=== PATIENT | female | born 1995 | race African-American/Black ===

== ENCOUNTER 2016-08-25 15:24 | Emergency (ER) | payer OTHER ==
[2016-08-25 15:35] VITALS: TEMP 98.2; BMI 29.7
[2016-08-25] MEDS ORDERED: SODIUM CHLORIDE 1,000 ML IV STA (16:03)
[2016-08-25] MEDS ORDERED: ONDANSETRON 4 MG/2 ML VIAL IVPUSH ONE (16:03)
[2016-08-25] MEDS ORDERED: ONDANSETRON 4 MG/2 ML VIAL ONE (16:24)
--- NOTE | 2016-08-25 16:31 | PDOC ---
History of Present Illness <Aiyana Urban - Last Filed: 08/25/16 20:12> - General History Source: Patient Exam Limitations: No Limitations - History of Present Illness Travel History: No Initial Comments: 08/25/16 16:28 21 yr female presents with 3 days body aches, nausea , no appetite, fever subjective last night took tylenol this am. Pt has no medical history , history of TOPx3, spontaneous miscarriage x1. Pt states her 5yr son is sick with similair symptoms at home. no back pain no vaginal discharge or vaginal bleeding. LMP 06/28/16. Timing/Duration: reports: changing over time Quality: reports: mild Pain Radiation: reports: no radiation Activities at Onset: reports: none <Haley Montemayor - Last Filed: 08/28/16 11:43> - General Chief Complaint: Loss of Appetite Stated Complaint: WEAKNESS, LOSS OF APPETITE, () Time Seen by Provider: 08/25/16 16:02 Past History <Aiyana Urban - Last Filed: 08/25/16 20:12> - Past Medical History Kidney Stones: Yes - Surgical History Abdominal Surgery: Yes (kidney stone removed) - Family Disease History Comment:: 08/25/16 16:30 none relevant - Reproductive History (#): 6 Para: 1 Ectopic : No Therapeutic (s) & number: Yes (1) Spontaneous : 2 - Immunization History Immunization Up to Date: Yes - Psycho/Social/Smoking Cessation Hx Verbal consent obtained for HIV testing: No Anxiety: No Suicidal Ideation: No Smoking Status: No Smoking History: Never smoked Have you smoked in the past 12 months: Yes Number of Cigarettes Smoked Daily: 0 If you are a former smoker, when did you quit?: 3weeks Information on smoking cessation initiated: No Hx Alcohol Use: No Drug/Substance Use Hx: No Substance Use Type: None <Haley Montemayor - Last Filed: 08/28/16 11:43> - Past Medical History Allergies/Adverse Reactions: Allergies Allergy/AdvReac Type Severity Reaction Status Date / Time No Known Allergies Allergy Verified 08/25/16 15:30 Home Medications: Ambulatory Orders NK [No Known Home Medication] 08/25/16 Abd/GI Specific PMHX - Complaint Specific PMHX Colitis: No Diverticulitis: No Gall Bladder Disease: No GERD: No Hepatitis: No Irritable Bowel Synd (IBS): No Pancreatitis: No GI Ulcer Disease: No <Haley Montemayor - Last Filed: 08/28/16 11:43> Review of Systems - Review of Systems Able to Perform ROS?: Yes Is the patient limited Turkish proficient: No Constitutional: No: Symptoms Reported HEENTM: No: Symptoms Reported <Haley Montemayor - Last Filed: 08/28/16 11:43> *Physical Exam - Vital Signs Last Vital Signs Temp Pulse Resp BP Pulse Ox 98.2 F 89 16 148/72 100 08/25/16 15:30 08/25/16 15:30 08/25/16 15:30 08/25/16 15:30 08/25/16 15:30 <Aiyana Urban - Last Filed: 08/25/16 20:12> - Vital Signs Last Vital Signs Temp Pulse Resp BP Pulse Ox 98.2 F 89 16 148/72 100 08/25/16 15:30 08/25/16 15:30 08/25/16 15:30 08/25/16 15:30 08/25/16 15:30 - Physical Exam General Appearance: Yes: Nourished, Appropriately Dressed HEENT: positive: EOMI, ANGELA, TMs Normal, Pharynx Normal, Nasal Congestion Neck: positive: Supple. negative: Tender Respiratory/Chest: positive: Lungs Clear, Normal Breath Sounds. negative: Chest Tender Cardiovascular: positive: Regular Rhythm, Regular Rate Gastrointestinal/Abdominal: positive: Normal Bowel Sounds, Soft. negative: Tender Musculoskeletal: positive: Normal Inspection. negative: CVA Tenderness, CVA Tenderness (R) Extremity: positive: Normal Capillary Refill, Normal Inspection, Normal Range of Motion Integumentary: positive: Normal Color, Dry, Warm Neurologic: positive: Fully Oriented, Alert, Normal Mood/Affect, Normal Response , Motor Strength 5/5 <Haley Montemayor - Last Filed: 08/28/16 11:43> ED Treatment Course - LABORATORY CBC & Chemistry Diagram: 08/25/16 16:45 08/25/16 16:45 - ADDITIONAL ORDERS Additional order review: Laboratory Results 08/25/16 08/25/16 16:45 16:45 Sodium 135 L Potassium 4.1 Chloride 103 Carbon Dioxide 26 Anion Gap 6 L BUN 6 L D Creatinine 0.6 Creat Clearance w eGFR > 60 Random Glucose 73 L Calcium 9.4 Total Bilirubin 0.8 D AST 14 L ALT 17 Alkaline Phosphatase 75 Total Protein 8.2 Albumin 4.2 Beta HCG, Quant 68729.8 Urine Color Yellow Urine Appearance Clear Urine pH 6.0 Ur Specific [place] 1.025 Urine Protein Trace H Urine Glucose (UA) Negative Urine Ketones 3+ H Urine Blood Negative Urine Nitrite Negative Urine Bilirubin Negative Urine Urobilinogen 0.2 e.u/dl Ur Leukocyte Esterase Negative 08/25/16 16:29 Influenza Types A,B Antigen (GLORIA) - Final Nasopharyngeal Swab - Final 08/25/16 16:45 RBC 5.03 MCV 89.5 MCHC 33.4 RDW 13.0 MPV 8.9 D - Medications Given in the ED: ED Medications Discontinued Medications Generic Name Dose Route Start Last Admin Trade Name Freq PRN Reason Stop Dose Admin Sodium Chloride 1,000 mls @ 1,000 mls/hr 08/25/16 16:03 08/25/16 16:05 Normal Saline - IV 08/25/16 17:02 1,000 mls/hr ASDIR STA Administration Ondansetron HCl 4 mg 08/25/16 16:03 08/25/16 16:05 Zofran Injection IVPUSH 08/25/16 16:04 4 mg ONCE ONE Administration <Aiyana Urban - Last Filed: 08/25/16 20:12> - LABORATORY CBC & Chemistry Diagram: 08/25/16 16:45 08/25/16 16:45 - Medications Given in the ED: ED Medications Discontinued Medications Generic Name Dose Route Start Last Admin Trade Name Freq PRN Reason Stop Dose Admin Ondansetron HCl 4 mg 08/25/16 16:03 08/25/16 16:05 Zofran Injection IVPUSH 08/25/16 16:04 4 mg ONCE ONE Administration <Haley Montemayor - Last Filed: 08/28/16 11:43> Progress Note - Progress Note Progress Note: SPOKE WITH PATIENT IN LENGTH REGARDING HER RESULTS. PATIENT STATES SHE WILL FOLLOW UP WITH 2 AMELIA PICHARDO INSPECTOR FINAL ASSEMBLY ELECTRICAL TOMORROW REGARDING CARE. PATIENT STATES SHE FEELS MUCH BETTER. DENIES ANY OTHER COMPLAINTS. <Aiyana Urban - Last Filed: 08/25/16 20:12> Medical Decision Making - Medical Decision Making 08/25/16 16:33 cc: nasal congestion, body aches, fever will check for flu labs, ua IVhydration, greta 08/25/16 18:34 negative for influenza awaiting US 08/25/16 19:04 signed out to MEMBER SERVICES COORDINATOR Elba awaiting disposition <Haley Montemayor - Last Filed: 08/28/16 11:43> *DC/Admit/Observation/Transfer - Discharge Dispostion Admit: No <Aiyana Urban - Last Filed: 08/25/16 20:12> <Haley Montemayor - Last Filed: 08/28/16 11:43> Diagnosis at time of Disposition: Dehydration Qualifiers: Weeks of gestation: unspecified Qualified Code(s): Z33.1 - state, incidental - Discharge Dispostion Disposition: HOME - Referrals Referrals: Tolu Muñoz MD, MD [Primary Care Provider] - Nithya Roberson MD [Staff Physician] - - Patient Instructions Printed Discharge Instructions: DI for Dehydration -- Adult, DI for - - Discomforts and Remedies Additional Instructions: drink pleanty of fluids clear liquids, jello, ice pops antyhing you can tolerate dry crackers dry cereal get pleanty of rest follow with your mainframe programmer follow with your doctor for follow up if symptoms worsen or persist. call 2 Amelia Pichardo at [phone] for appointment with INSPECTOR FINAL ASSEMBLY [employer]LECT[employer]. Return if any concerns for further evaluation. Please eat. Print Language: CITIZEN OF [place]
[2016-08-25 16:56] LABS: URINE APPEARANCE CLEAR; URINE BILIRUBIN NEGATIVE (NEGATIVE); URINE BLOOD NEGATIVE (NEGATIVE); URINE COLOR YELLOW; URINE GLUCOSE (UA) NEGATIVE (NEGATIVE); URINE KETONE 3+ (NEGATIVE); URINE LEUK ESTERASE NEGATIVE (NEGATIVE); URINE NITRITE NEGATIVE (NEGATIVE); URINE PROTEIN TRACE (NEGATIVE); URINE UROBILINOGEN 0.2 E.U/dl E.U./dl (0.2-1.0)
[2016-08-25 16:58] LABS: MCH 29.9 pg (25.7-33.7); MCHC 33.4 g/dl (32.0-36.0); MEAN CELL VOLUME 89.5 fl (80-96); MEAN PLT VOLUME 8.9 fl (7.5-11.1); PLATELET COUNT 275 K/MM3 (134-434); WHITE BLOOD COUNT 8.2 K/mm3 (4.0-10.0)
--- NOTE | 2016-08-25 17:01 | PDOC ---
*Physical Exam - Vital Signs Last Vital Signs Temp Pulse Resp BP Pulse Ox 98.2 F 89 16 148/72 100 08/25/16 15:30 08/25/16 15:30 08/25/16 15:30 08/25/16 15:30 08/25/16 15:30 ED Treatment Course - LABORATORY CBC & Chemistry Diagram: 08/25/16 16:45 08/25/16 16:45 - Medications Given in the ED: ED Medications Discontinued Medications Generic Name Dose Route Start Last Admin Trade Name Yolis PRN Reason Stop Dose Admin Ondansetron HCl 4 mg 08/25/16 16:03 08/25/16 16:05 Zofran Injection IVPUSH 08/25/16 16:04 4 mg ONCE ONE Administration Medical Decision Making - Medical Decision Making 08/25/16 16:56 Case reviewed with EQUIPMENT OPERATOR WAGE HAND. Plan as per EQUIPMENT OPERATOR WAGE HAND. *DC/Admit/Observation/Transfer Diagnosis at time of Disposition: , Dehydration - Discharge Dispostion Disposition: HOME - Referrals Referrals: Nithya Roberson MD [Staff Physician] - Tolu Muñoz MD, MD [Primary Care Provider] - - Patient Instructions Printed Discharge Instructions: DI for Dehydration -- Adult, DI for - - Discomforts and Remedies Additional Instructions: drink pleanty of fluids clear liquids, jello, ice pops antyhing you can tolerate dry crackers dry cereal get pleanty of rest follow with your aluminizer follow with your doctor for follow up if symptoms worsen or persist. call 2 Kamille Pichardo at [phone] for appointment with VIDEOTAPE SALES REPRESENTATIVE. Return if any concerns for further evaluation. Please eat. Print Language: NEPALESE
[2016-08-25 17:16] LABS: ALBUMIN 4.2 g/dl (3.4-5.0); ANION GAP 6 (8-16); BILIRUBIN,TOTAL 0.8 mg/dL (0.2-1.0); CALCIUM 9.4 mg/dL (8.5-10.1); CO2 26 mmol/L (21-32); CREATININE 0.6 mg/dL (0.55-1.02); GLUCOSE,RANDOM 73 mg/dL (74-106); SGOT/AST 14 U/L (15-37); SGPT/ALT 17 U/L (12-78); TOT PROT 8.2 g/dl (6.4-8.2)
[2016-08-25 17:31] LABS: ALK PHOS 75 U/L (45-117)
[2016-08-25 20:29] VITALS: BP 130/70; PULSE 72
== END 2016-08-25 20:29 | disposition home or self-care (01) ==
LOC: JER 15:24
PROC: 3E033GC Introduction of Other Therapeutic Substance into Peripheral Vein, Percutaneous Approach (ICD-10-PCS; principal; 2016-08-25)
PROC: 3E0337Z Introduction of Electrolytic and Water Balance Substance into Peripheral Vein, Percutaneous Approach (ICD-10-PCS; 2016-08-25)
DX: Z33.1 Pregnant state, incidental (principal); E86.0 Dehydration; Z87.891 Personal history of nicotine dependence; Z87.442 Personal history of urinary calculi
CPT/HCPCS: 36415; 76817-TC; 80053; 81003; 84702; 85027; 87491; 87591; 87804; 99283-25

== ENCOUNTER 2016-12-31 10:03 | Emergency (ER) | payer OTHER ==
[2016-12-31 10:23] VITALS: BP 150/87; PULSE 87; TEMP 98.4; BMI 30.4
--- NOTE | 2016-12-31 10:38 | PDOC ---
History of Present Illness - General History Source: Patient Exam Limitations: No Limitations - History of Present Illness Initial Comments: 12/31/16 13:10 The patient is a 21 year old female, with a significant past medical history of kidney stones, and migraines, sent by PCP to the Emergency Department with RUQ pain, and cough. Pt endorses some nasal congestion/itchy eyes, chest tighness and wheezing for the past several weeks, she went to her allergy doctor who started her on prednisone, but stopped it on her own last . Pt endorsed that she started havign RUQ pain associaed with some nausea. Pt states her RUQ pain is chronic for a year but seemed to worsen today. Pt also endrosed some mild dizziness. Pt states she had a elective in august, lmp was last month. The patient denies vomiting, or diarrhea. Patient denies hemoptysis. Patient denies numbness or tingling to the extremities. Patient denies fever, or chills. Patient denies double vision, blurry vision, and visual changes. Patient denies vaginal bleeding, or discharge. Social Hx: denies cigarette smoking Surgical Hx: kidney stone removal <Mayte Ellison - Last Filed: 12/31/16 15:25> - General History Source: Patient Exam Limitations: No Limitations - History of Present Illness Travel History: No Initial Comments: 12/31/16 12:12 <Karlos Shelton - Last Filed: 12/31/16 16:49> - General Chief Complaint: Pain, Acute Stated Complaint: PCP SENT FOR EVALUATION Time Seen by Provider: 12/31/16 10:33 Past History <Mayte Ellison - Last Filed: 12/31/16 15:25> - Past Medical History Kidney Stones: Yes - Surgical History Abdominal Surgery: Yes (kidney stone removed) - Reproductive History (#): 6 Para: 1 Ectopic : No Therapeutic (s) & number: Yes (1) Spontaneous : 2 - Immunization History Immunization Up to Date: Yes - Psycho/Social/Smoking Cessation Hx Anxiety: No Suicidal Ideation: No Smoking Status: No Smoking History: Never smoked Have you smoked in the past 12 months: Yes Number of Cigarettes Smoked Daily: 0 If you are a former smoker, when did you quit?: 3weeks Information on smoking cessation initiated: No Hx Alcohol Use: No Drug/Substance Use Hx: No Substance Use Type: None <Karlos Shelton - Last Filed: 12/31/16 16:49> - Past Medical History Allergies/Adverse Reactions: Allergies Allergy/AdvReac Type Severity Reaction Status Date / Time No Known Allergies Allergy Verified 12/31/16 10:23 Home Medications: Ambulatory Orders Albuterol Sulfate Inhaler - [Ventolin HFA Inhaler -] 1 - 2 inh PO Q4H PRN #1 inhaler 12/31/16 Abd/GI Specific PMHX - Complaint Specific PMHX Colitis: No Diverticulitis: No Gall Bladder Disease: No GERD: No Hepatitis: No Irritable Bowel Synd (IBS): No Pancreatitis: No GI Ulcer Disease: No <Karlos Shelton - Last Filed: 12/31/16 16:49> Review of Systems - Review of Systems Able to Perform ROS?: Yes Comments:: 12/31/16 13:10 CONSTITUTIONAL: Reported: + dizziness No reported: Fever, Chills, Diaphoresis, Generalized Weakness, Malaise, Loss of Appetite HEENT: Reported: + nasal congestion No reported: Rhinorrhea, Throat Pain, Throat Swelling, Difficulty Swallowing, Mouth Swelling, Ear Pain, Eye Pain, Visual Changes CARDIOVASCULAR: Reported: + right sided chest pain and tightness No reported: Syncope, Palpitations, Irregular Heart Rate, Lightheadedness, Peripheral Edema RESPIRATORY: Reported: + cough No reported: Shortness of Breath, SOB with Exertion, Orthopnea, Wheezing, Stridor, Hemoptysis GASTROINTESTINAL: Reported: + RUQ pain radiating to right back and right leg, + nausea No reported: Abdominal Distension, Vomiting, Diarrhea, Constipation, Melena, Hematochezia GENITOURINARY: No reported: Dysuria, Frequency, Urgency, Hesitancy, Flank Pain, Genital Pain MUSCULOSKELETAL: No reported: Myalgia, Arthralgia, Joint Swelling, Back pain, Neck Pain SKIN: No reported: Rash, Itching, Pallor HEMATOLOGIC/IMMUNOLOGIC: No reported: Easy Bleeding, Easy Bruising, Lymphadenopathy, Frequent infections ENDOCRINE: No reported: Unexplained Weight Gain, Unexplained Weight Loss, Heat Intolerance , Cold Intolerance NEUROLOGIC: Reported: + headache worse at right side No reported: Focal Weakness, Paresthesias, Vertigo, Unsteady Gait, Seizure, Mental Status Changes, Incontinence PSYCHIATRIC: No reported: Anxiety, Depression <Mayte Ellison - Last Filed: 12/31/16 15:25> *Physical Exam - Vital Signs Last Vital Signs Temp Pulse Resp BP Pulse Ox 98.4 F 87 20 150/87 100 12/31/16 10:19 12/31/16 10:19 12/31/16 10:19 12/31/16 10:19 12/31/16 10:19 - Physical Exam Comments: 12/31/16 13:10 GENERAL: The patient is awake, alert, and fully oriented, Nontoxic - in no acute distress. HEAD: Normocephalic, atraumatic. EYES: extraocular movements intact, sclera anicteric, conjunctiva clear. ENT: Normal voice, Moist mucous membranes. NECK: Normal range of motion, supple LUNGS: mild expiratory wheezing, no acute respiratory distress, speaking complete sentences. HEART: Regular rate and rhythm, normal S1 and S2 without murmur, rub or gallop. ABDOMEN: mild RUQ tenderness, no rebound/guarding, EXTREMITIES: Normal range of motion, no edema. No clubbing or cyanosis. No cords, erythema, or tenderness. NEUROLOGICAL: No facial assymetry, Normal speech, PSYCH: tearful affect SKIN: Warm, Dry, normal turgor, <Mayte Ellison - Last Filed: 12/31/16 15:25> - Vital Signs Last Vital Signs Temp Pulse Resp BP Pulse Ox 98.4 F 87 20 150/87 100 12/31/16 10:19 12/31/16 10:19 12/31/16 10:19 12/31/16 10:19 12/31/16 10:19 <Karlos Shelton - Last Filed: 12/31/16 16:49> Heart Score/ECG Review - ECG Impressions Comment:: 12/31/16 12:13 Twelve-lead EKG was performed and reviewed by me. There is normal sinus rhythm with a normal rate. rate of 72 The axis is normal. The intervals are normal. There is normal R wave progression Impression: Normal twelve-lead EKG <Karlos Shelton - Last Filed: 12/31/16 16:49> ED Treatment Course - LABORATORY CBC & Chemistry Diagram: 12/31/16 11:42 12/31/16 11:42 - ADDITIONAL ORDERS Additional order review: Laboratory Results 12/31/16 12/31/16 11:42 11:42 Sodium 139 Potassium 5.4 H D Chloride 105 Carbon Dioxide 28 Anion Gap 6 L BUN 8 D Creatinine 0.6 Creat Clearance w eGFR > 60 Random Glucose 87 Calcium 9.3 Total Bilirubin 0.7 Direct Bilirubin 0.1 AST 30 D ALT 22 D Alkaline Phosphatase 79 Total Protein 8.3 H Albumin 4.0 Beta HCG, Quant < 1.0 12/31/16 11:42 RBC 4.83 MCV 90.4 MCHC 34.4 RDW 12.8 MPV 8.8 Neutrophils % 42.3 L Lymphocytes % 39.0 D Monocytes % 11.2 H Eosinophils % 6.7 H D Basophils % 0.8 - RADIOLOGY Radiology Studies Ordered: 12/31/16 15:25 Chest XRay As reviewed by Dr. John Ocampo IMPRESSION: No evidence of active pulmonary disease. Radiograph Interpretation: 12/31/16 13:37 Ultrasound Abdomen As reviewed by Dr. Lilia Babin IMPRESSION: Unremarkable examination. No gallstones or renal stone identified. - Medications Given in the ED: ED Medications Discontinued Medications Generic Name Dose Route Start Last Admin Trade Name Freq PRN Reason Stop Dose Admin Sodium Polystyrene Sulfonate 15 gm 12/31/16 12:53 12/31/16 12:57 Kayexalate - PO 12/31/16 12:54 15 gm ONCE ONE Administration <Mayte Ellison - Last Filed: 12/31/16 15:25> - LABORATORY CBC & Chemistry Diagram: 12/31/16 11:42 12/31/16 11:42 <Karlos Shelton - Last Filed: 12/31/16 16:49> Medical Decision Making - Medical Decision Making 12/31/16 12:13 21y F hx of seasonal allergies presenting with multiple complaints - +seasonal allergies and was n steroids through allergiest, has also been having coughing/ wheezing for several days w/o associated fevers. Pt also having complaint of RUQ pain that is chronic x 1 year, but worse today with an epsiode of vomiting. pt has normal vitals on exam, +mild expiratory wheezing on exam, appears anxious and tearfl affect will r/o pna with cxr, suspet sesaonal allergies will give nebs will obtain RUQ US to r/o hydro and gall stones as cause of her ruqpain will r/o - pt was in august, had , and has been well since then A portion of this note was documented by scribe services under my direction. I have reviewed the details of the note, within reason, and agree with the documentation with the following case summary and management plan written by me 12/31/16 13:41 labs reivewed noted for mild hyperkalemia will give kayexalate no ekg changes US negative for acute process 12/31/16 14:38 cxr unremarakble pt feeling improved will dc the pt to fu with dr. muñoz/pmd return precautions were discussed I discussed the physical exam findings, ancillary test results and final diagnoses with the patient. I answered all of the patient's questions. The patient was satisfied with the care received and felt comfortable with the discharge plan and treatment plan. The patient will call their primary care physician within 24 hours to arrange follow-up and will return to the Emergency Department with any new, persistent or worsening symptoms. <Karlos Shelton - Last Filed: 12/31/16 16:49> *DC/Admit/Observation/Transfer - Attestations Scribe Attestion: 12/31/16 13:10 Documentation prepared by Mayte Ellison, acting as medical technologist chemistry for Karlos Shelton MD. <Mayte Ellison - Last Filed: 12/31/16 15:25> - Discharge Dispostion Admit: No <Karlos Shelton - Last Filed: 12/31/16 16:49> Diagnosis at time of Disposition: Environmental allergies Abdominal pain Qualifiers: Abdominal location: generalized Qualified Code(s): R10.84 - Generalized abdominal pain - Discharge Dispostion Disposition: HOME Condition at time of disposition: Improved - Prescriptions Prescriptions: Albuterol Sulfate Inhaler - [Ventolin HFA Inhaler -] 1 - 2 inh PO Q4H PRN #1 inhaler PRN Reason: Shortness Of Breath - Referrals Referrals: Tolu Muñoz MD, MD [Primary Care Provider] - Tony Meadows MD [Staff Physician] - - Patient Instructions Printed Discharge Instructions: DI for Abdominal Pain-Adult Additional Instructions: Return to the emergency department immediately with ANY new, persistent or worsening symptoms including worsening abdominal pain, fevers, inability to tolerate oral intake, chest pain, shortness of breath or any other concerns. Stay well hydrated. You MUST call and follow up with your doctor tomorrow. Your emergency department visit is not complete without a followup with your doctor for reevaluation. Please make sure your doctor reviews the results of your emergency evaluation. Print Language: FRISIAN - Post Discharge Activity Work/School Note: Back to Work
[2016-12-31 11:48] LABS: BASOPHIL 0.8 % (0-2.0); EOSINOPHIL 6.7 % (0-4.5); MCH 31.1 pg (25.7-33.7); MCHC 34.4 g/dl (32.0-36.0); MEAN CELL VOLUME 90.4 fl (80-96); MEAN PLT VOLUME 8.8 fl (7.5-11.1); NEUTROPHILS 42.3 % (42.8-82.8); PLATELET COUNT 222 K/MM3 (134-434); RDW 12.8 % (11.6-15.6); WHITE BLOOD COUNT 6.9 K/mm3 (4.0-10.0)
[2016-12-31 12:12] LABS: ANION GAP 6 (8-16); BILIRUBIN,TOTAL 0.7 mg/dL (0.2-1.0); CALCIUM 9.3 mg/dL (8.5-10.1); CO2 28 mmol/L (21-32); COCKROFT - GAULT 179.5965; CREATININE 0.6 mg/dL (0.55-1.02); GLUCOSE,RANDOM 87 mg/dL (74-106); SGPT/ALT 22 U/L (12-78)
[2016-12-31] MEDS ORDERED: ALBUTEROL SO4 2.5/IPRATROPIUM 0.5 INH SOL 3 ML VIAL.NEB. NEB ONE ×2 (12:12→13:54)
[2016-12-31 12:13] LABS: ALK PHOS 79 U/L (45-117); TOT PROT 8.3 g/dl (6.4-8.2)
[2016-12-31 12:23] LABS: BILIRUBIN,DIRECT 0.1 mg/dL (0.0-0.2); SGOT/AST 30 U/L (15-37)
[2016-12-31] MEDS ORDERED: SODIUM POLYSTYRENE SULFONATE 15 GM/60 ML BOTTLE PO ONE (12:53)
[2016-12-31] MEDS ORDERED: SODIUM POLYSTYRENE SULFONATE 15 GM/60 ML BOTTLE ONE (12:56)
[2016-12-31] MEDS ORDERED: KETOROLAC TROMETHAMINE 30 MG/1 ML VIAL IVPUSH ONE (13:13)
[2016-12-31] MEDS ORDERED: KETOROLAC TROMETHAMINE 30 MG/1 ML VIAL ONE (13:54)
--- NOTE | 2016-12-31 16:13 | EKG ---
Test Reason : Blood Pressure : / mmHG Vent. Rate : 072 BPM Atrial Rate : 072 BPM P-R Int : 144 ms QRS Dur : 080 ms QT Int : 372 ms P-R-T Axes : 027 070 035 degrees QTc Int : 407 ms NORMAL SINUS RHYTHM WITH SINUS ARRHYTHMIA NORMAL ECG NO PREVIOUS ECGS AVAILABLE Confirmed by MEDARDO GARCIA, MARSHA ([id number]) on 12/31/2016 4:12:43 PM Referred By: Confirmed By:MARSHA BATRES MD
== END 2016-12-31 16:50 | disposition home or self-care (01) ==
LOC: JER 10:03
PROC: 3E0F7GC Introduction of Other Therapeutic Substance into Respiratory Tract, Via Natural or Artificial Opening (ICD-10-PCS; principal; 2016-12-31)
PROC: 3E0233Z Introduction of Anti-inflammatory into Muscle, Percutaneous Approach (ICD-10-PCS; 2016-12-31)
DX: J30.89 Other allergic rhinitis (principal); R10.84 Generalized abdominal pain
CPT/HCPCS: 36415; 71020-TC; 76705-TC; 80053; 82248; 84702; 85025; 93005; 93010; 99283-25

== ENCOUNTER 2017-11-19 14:40 | Inpatient (IN) | payer OTHER ==
[2017-11-19 16:02] LABS: URINE APPEARANCE CLOUDY; URINE BILIRUBIN NEGATIVE (<2.0 mg/dL); URINE COLOR YELLOW; URINE GLUCOSE (UA) NEGATIVE (NEGATIVE); URINE KETONE NEGATIVE (NEGATIVE); URINE LEUK ESTERASE NEGATIVE (NEGATIVE); URINE NITRITE NEGATIVE (NEGATIVE); URINE PROTEIN NEGATIVE (NEGATIVE); URINE UROBILINOGEN NEGATIVE mg/dL (0.2-1.0)
[2017-11-19] MEDS ORDERED: DEXTROSE 5%-LACTATED RINGERS 1,000 ML IV ONE (18:00)
[2017-11-19] MEDS ORDERED: NIFEdipine 10 MG CAPSULE (FP) ONE ×4 (18:42→23:51)
[2017-11-19] MEDS ORDERED: NIFEdipine 10 MG CAPSULE (FP) PO ONE ×3 (19:00→22:30)
[2017-11-19] MEDS ORDERED: DEXTROSE 5%-LACTATED RINGERS 1,000 ML IV SCH (20:00)
[2017-11-19] MEDS ORDERED: BETAMET ACET/BETAMET NA PH 30 MG/5 ML VIAL IM SCH (20:15)
[2017-11-19] MEDS ORDERED: BETAMET ACET/BETAMET NA PH 30 MG/5 ML VIAL ONE (20:19)
[2017-11-19] MEDS ORDERED: ELECTROLYTE-148 SOLN 1,000 ML IV SCH (20:30)
[2017-11-19] MEDS ORDERED: CITRIC ACID/SODIUM CITRATE 30 ML UNIT-DOSE CUP PO ONE (20:30)
--- NOTE | 2017-11-19 23:39 | HP ---
Past Medical History - Primary Care Physician PCP:: Hernan Harmon - Admission Chief Complaint: 22yo P1051 @ 36.1 wks c/o contractions, no VB, no LOF, +Fm History of Present Illness: She received IV Hydration During evaluation and contractions spaced out and than recurred; She also complains of dysuria History Source: Patient Limitations to Obtaining History: No Limitations - Past Medical History ...: 8 ...Para: 1 (c/section for NRFHR) ...Term: 1 ...Spon : 6 ...LMP: 03/09/17 ... Weeks Gestation by Dates: 36 ...EDC by Dates: 12/17/17 ...EDC by Sono: 12/17/17 Psych: Yes: Anxiety - Past Surgical History Past Surgical History: Yes: Tonsillectomy Hx Myomectomy: No Hx Transabdominal Cerclage: No Additional Surgical History: Left toe surgery - Smoking History Smoking history: Never smoked Have you smoked in the past 12 months: Yes Aproximately how many cigarettes per day: 0 If you are a former smoker, when did you quit?: 3weeks - Alcohol/Substance Use Hx Alcohol Use: No History of Substance Use: reports: None Home Medications - Allergies Allergies/Adverse Reactions: Allergies Allergy/AdvReac Type Severity Reaction Status Date / Time No Known Allergies Allergy Verified 11/03/17 14:36 - Home Medications Home Medications: Ambulatory Orders Vitamins (Sjr) - 1 tab PO DAILY 08/30/17 Review of Systems - Review of Systems Constitutional: reports: No Symptoms Eyes: reports: No Symptoms HENT: reports: No Symptoms Neck: reports: No Symptoms Cardiovascular: reports: No Symptoms Respiratory: reports: No Symptoms Gastrointestinal: reports: No Symptoms Genitourinary: reports: Dysuria Breasts: reports: No Symptoms Reported Musculoskeletal: reports: No Symptoms Integumentary: reports: No Symptoms Neurological: reports: No Symptoms Endocrine: reports: No Symptoms Hematology/Lymphatic: reports: No Symptoms Psychiatric: reports: Anxiety Physical Exam - Maternity Vital Signs: Vital Signs Temperature 98.2 F 11/19/17 21:58 Pulse Rate 110 H 11/19/17 23:00 Respiratory Rate 20 11/19/17 23:00 Blood Pressure 126/62 11/19/17 23:00 O2 Sat by Pulse Oximetry (%) Constitutional: Yes: Well Nourished, No Distress, Calm Eyes: Yes: WNL HENT: Yes: WNL, Atraumatic, Normocephalic Neck: Yes: WNL, Supple, Trachea Midline Cardiovascular: Yes: WNL, Regular Rate and Rhythm Lungs: Clear to auscultation Breast(s): Yes: WNL - Abdominal Exam/OB Fundal Height: 36 Number of Fetuses: Single Presentation: Vertex Contractions: Yes Regularity: Regular (3-5min) Intensity: Mild/Mod Monitor Mode: External Heart Rate (range): 140's Heart Rate Location: [facility] Category: I Accelerations: Uniform Decelerations: None - Vaginal Exam/OB Vaginal Bleediing: No Speculum Exam: No Dilatation (cm): closed Effacement (%): long Amniotic Membrane Status: Intact Presentation: Vertex/Position Station: -4 - Physical Exam Musculoskeletal: Yes: WNL Integumentary: Yes: WNL Deep Tendon Reflex Grade: Normal +2 ...Motor Strength: WNL Psychiatric: Yes: Other (anxious) Assessment/Plan 22yo P1061 @ 36.1 wks with contractions Admit to L&D Case discussed with Send Admit labs and UA culture Procardia trail and Stadol/Phenergan was effective in stopping frequency of the contractions Continue Procardia 20mg Q 6hr Bethamethasone given @ 8pm 11/19/17, second dose due 8pm 11/20/17 Start Kefzol for presumed UTI NPO post breakfast will reevaluate at 9pm if contractions persist will proceed with c/section
[2017-11-20] MEDS: NIFEdipine 10 MG CAPSULE (FP) PO SCH ×4 (00:19→17:51)
[2017-11-20 00:29] LABS: EOS % 0.1 % (0-4.5); HEMOGLOBIN 14.3 GM/dL (10.7-15.3)
[2017-11-20 00:31] LABS: BASO % 0.3 % (0-2.0); HEMATOCRIT 41.2 % (32.4-45.2); LYMPH % 9.7 % (8-40); MCH 32.3 pg (25.7-33.7); MCHC 34.7 g/dl (32.0-36.0); MEAN CELL VOLUME 93.1 fl (80-96); MEAN PLT VOLUME 9.5 fl (7.5-11.1); MONO % 3.1 % (3.8-10.2); NEUT % 86.8 % (42.8-82.8); PLATELET COUNT 206 K/MM3 (134-434); RBC 4.43 M/mm3 (3.60-5.2); RDW 13.1 % (11.6-15.6); WHITE BLOOD COUNT 10.4 K/mm3 (4.0-10.0)
[2017-11-20 00:50] LABS: INR 0.96 (0.82-1.09); PROTHROMBIN TIME (PATIENT) 10.8 SEC (9.98-11.88)
[2017-11-20 00:52] LABS: ACTIVATED PTT 28.2 SECONDS (26.9-34.4)
[2017-11-20 01:15] LABS: ANION GAP 14 (8-16); BLOOD UREA NITROGEN 3 mg/dL (7-18); CALCIUM 9.6 mg/dL (8.5-10.1); CHLORIDE 103 mmol/L (98-107); CO2 21 mmol/L (21-32); CREATININE 0.4 mg/dL (0.55-1.02); GLUCOSE,RANDOM 101 mg/dL (74-106); POTASSIUM 3.7 mmol/L (3.5-5.1); SODIUM 138 mmol/L (136-145)
[2017-11-20] MEDS ORDERED: BUTORPHANOL TARTRATE 1 MG/ML VIAL ONE ×2 (01:30)
[2017-11-20] MEDS ORDERED: BUTORPHANOL TARTRATE 1 MG/ML VIAL IVPB ONE (01:30)
[2017-11-20] MEDS ORDERED: PROMETHAZINE HCL 25 MG/1 ML VIAL ONE (01:30)
[2017-11-20] MEDS ORDERED: PROMETHAZINE HCL 25 MG/1 ML VIAL IVPB ONE (01:30)
[2017-11-20 01:56] VITALS: BMI 30.2
[2017-11-20] MEDS: CEFAZOLIN 500 MG in DEXTROSE 5%-WATER - 50 ML IVPB SCH ×2 (09:35→22:00)
[2017-11-20] MEDS ORDERED: NIFEdipine 10 MG CAPSULE (FP) ONE ×2 (11:54→17:15)
[2017-11-20] MEDS ORDERED: BETAMET ACET/BETAMET NA PH 30 MG/5 ML VIAL IM ONE (20:30)
[2017-11-21] MEDS ORDERED: NIFEdipine 10 MG CAPSULE (FP) ONE (00:10)
[2017-11-21] MEDS: NIFEdipine 10 MG CAPSULE (FP) PO SCH ×4 (00:10→17:05)
[2017-11-21] MEDS ORDERED: NALOXONE HCL 0.4 MG/ML VIAL IVPUSH PRN (02:52)
[2017-11-21] MEDS ORDERED: ONDANSETRON 4 MG/2 ML VIAL IVPUSH PRN ×2 (02:54→07:55)
[2017-11-21] MEDS ORDERED: ELECTROLYTE-148 SOLN 1,000 ML IV ONE (06:30)
[2017-11-21] MEDS ORDERED: OXYTOCIN 20 UNITS in 0.9% NS 20 UNIT/1,000 ML INFUS.BAG IV ONE ×2 (07:52→10:50)
--- NOTE | 2017-11-21 07:54 | PN ---
Progress Note (short form) - Note Progress Note: 22yo P1061 @ 36.3wks admitted with contractions s/p Betamethasone and Procardia tocolisys She is also on Kefzol for presumed UTI She currently reports persistent pelvic discomfort and contractions and desires repeat c/section risks of uterine rupture, injury to bowel, bladder and vessels discussed with patient All questions answered will proceed with repeat c/section Consent signed
[2017-11-21] MEDS ORDERED: oxyCODONE HCL 5 MG TABLET PO PRN (07:55)
[2017-11-21] MEDS ORDERED: BENZOCAINE 28 GM HEMORRHOIDAL OINTMENT PR PRN (07:55)
[2017-11-21] MEDS ORDERED: IBUPROFEN 800 MG/8 ML IJ IVPB PRN (07:55)
[2017-11-21] MEDS ORDERED: METHYLERGONOVINE MALEATE 0.2 MG/1 ML AMP IM PRN (07:55)
[2017-11-21] MEDS ORDERED: BENZOCAINE 20% 57 GM BOTTLE TP PRN (07:55)
[2017-11-21] MEDS ORDERED: morphine SULFATE/Preservative Free 0.5 MG/ML (1cc Syringe) EP ONE (07:55)
[2017-11-21] MEDS ORDERED: diphenhydrAMINE HCL 25 MG CAPSULE (FP) PO PRN (07:55)
[2017-11-21] MEDS ORDERED: WITCH HAZEL 50% (TUCKS) 40 PAD/JAR PAD TP PRN (07:55)
--- NOTE | 2017-11-21 07:55 | OP ---
Operative Note - Note: Operative Date: 11/21/17 Pre-Operative Diagnosis: 22yo P1 @ 36.3 weeks with prior c/section and contractions,. s/p Procardia tocolysis and Betamethasone for FLM Operation: Repeat c/section Findings: 1. Extensive Uterine window 2. Viable male 5.9lb, APGARs 9/9 3. Fundal 4cm fibroid 4. Nl tubes and ovaries Post-Operative Diagnosis: Other (Same and Uterine window) Surgeon: Kathe Whatley Senior Oracle Dba: Sandor Rabago Anesthesiologist/DROP MAN: Parminder Young Anesthesia: Spinal Specimens Removed: Viable male APGARs 9/9 Estimated Blood Loss (mls): 500 Drains, Volume Out (mls): 450 Fluid Volume Replaced (mls): 1,200 Operative Report Dictated: Yes
--- NOTE | 2017-11-21 07:55 | PN ---
Delivery - Delivery Section: Repeat, Low Flap Transverse Type of Anesthesia: Spinal Episiotomy/Laceration: None EBL (cc): 500 Delivery, Single - Stages of Labor Date of Delivery: 11/21/17 Time of Delivery: 08:42 Date Placenta Delivered: 11/21/17 Time Placenta Delivered: :43 Placenta: Yes: Expressed - Condition of Real Estate Attorney/Supervisory Examiner Present: Yes Gender: Male Weight: 5 lb 9 oz Position: Left, OA, OT - 1 Minute Total Score: 9 5 Minutes Total Score: 9 - [place] Feeding Plan Initial Plan: Elected not to breastfeed exclusively throughout hospitalization Benefits of Exclusively reinforced: Yes Remarks - Remarks Remarks: Uterus repaired in multiple layers
[2017-11-21] MEDS ORDERED: OXYTOCIN 20 UNITS in 0.9% NS 20 UNIT/1,000 ML INFUS.BAG IV SCH (08:00)
[2017-11-21] MEDS ORDERED: ceFAZolin SODIUM 1 GM VIAL ONE (08:04)
[2017-11-21] MEDS ORDERED: BUPIVACAINE 0.75% IN DEXTROSE/PF 2ML AMPULE NR ONE (08:06)
[2017-11-21] MEDS ORDERED: PHENYLEPHRINE HCL 10 MG/1 ML SINGLE DOSE VIAL ONE (08:22)
[2017-11-21] MEDS ORDERED: TUBERCULIN PPD 5 TU/0.1ML SYRINGE (IN PATIENT USE ONLY) ID ONE (08:30)
[2017-11-21] MEDS ORDERED: MEPERIDINE HCL CARPU-JECT 50 MG/1 ML DISP.SYRIN ONE (08:50)
[2017-11-21 09:10] LABS: ARTERIAL BLD GAS O2 SATURATION 87.4 % (90-98.9); ARTERIAL BLOOD GAS BASE EXCESS -2.4 meq/l (-2-2); ARTERIAL BLOOD GAS PCO2 34.6 mmHg (35-45); ARTERIAL BLOOD GAS PO2 42.8 mmHg (80-100); ARTERIAL BLOOD GAS pH 7.4 (7.35-7.45)
[2017-11-21 09:33] LABS: VENOUS PH 7.41 (7.32-7.42)
[2017-11-21 09:34] LABS: VENOUS PO2 49.8 mmHg (28-48)
--- NOTE | 2017-11-21 09:46 | SURG ---
Surgery Director Of Quantitative Research Note Director Of Quantitative Research: Sandor Rabago PA-C Date of Service: 11/21/17 Diagnosis: 36.3 weeks gravid. contractions Procedure: section I was present for the entirety of the operative procedure. For further detail, please refer to operative report. Visit type - Case Type Case Type: Scheduled Admission - New patient This patient is new to me today: Yes Date on this admission: 11/21/17
[2017-11-21] MEDS ORDERED: IBUPROFEN 800 MG/8 ML IJ IVPB ONE (10:50)
[2017-11-21] MEDS: IBUPROFEN 800 MG/8 ML IJ IVPB PRN (10:55)
[2017-11-21] MEDS: CEFAZOLIN 1 GM/D5W 1 GM/50 ML BAG IVPB SCH ×3 (11:00→17:25)
[2017-11-21] MEDS: FENTANYL/BUPIVACAINE/NS/PF - PCEA - 50 ML DISP.SYRIN EP SCH (12:09)
[2017-11-21] MEDS: DEXTROSE 5%-LACTATED RINGERS 1,000 ML IV SCH ×2 (12:11→19:43)
--- NOTE | 2017-11-22 01:02 | OP ---
DATE OF OPERATION: 11/21/2017 PREOPERATIVE DIAGNOSIS: A 22-year-old para 1 at 36 and 3 weeks with prior section and contractions in labor status post Procardia tocolysis and dexamethasone for lung maturity. POSTOPERATIVE DIAGNOSIS: A 22-year-old para 1 at 36 and 3 weeks with prior section and contractions in labor status post Procardia tocolysis and dexamethasone for lung maturity, and uterine window. PROCEDURE: Repeat section. FINDINGS: 1. Extensive uterine window. 2. Viable male 5.9 pounds, Apgars 9 and 9. 3. Fundal 4 cm fibroid. 4. Normal tubes and ovaries. SURGEON: Kathe Whatley M.D. ANESTHESIOLOGIST: Rachele Ward ANESTHESIOLOGIST: Parminder Young M.D. ANESTHESIA: Spinal. DESCRIPTION OF OPERATIVE PROCEDURE: After assuring informed consent, the patient was brought to the operating room where she was placed in dorsal supine position with left lateral tilt. Abdomen was prepped and draped in sterile fashion after assuring adequate level of anesthesia. Pfannenstiel skin incision was made with a scalpel, and carried down to the level of fascia with the Bovie cautery. Fascia was incised bilaterally and fascial incision was extended bilaterally with Bovie cautery. The Brittney clamps were placed on the fascia, and fascia was dissected downwards off the abdominal muscle. Brittney clamps were replaced in the anterior superior edge of the fascia and fascia was dissected off the rectus abdominis muscle with Bovie cautery. Muscle split in the midline with good visualization of underlying organs. Peritoneum was tented with Kellys, and Metzenbaum scissors were used to enter the peritoneum with good visualization of underlying organs. Peritoneum was dissected superiorly and inferiorly. Bladder flap was retracted and subsequently created, although it was noted that the uterine window was quite extensive. Bladder was peeled off the lower uterine segment. Large uterine window was noted nicked with the scalpel and dissected bilaterally avoiding uterine vessels. 's head was delivered atraumatically as well as the rest of the 's body. Cord was clamped and cut. was handed to equipment scheduler. Placenta was expressed without any difficulty. The uterus was repaired with 0 Biosyn in running, locking fashion. Subsequently imbricating uterine layer was created and thin lower uterine segment was brought back into the incision. Excellent hemostasis noted. The gutters were cleared of clots and debris. The peritoneum was repaired with 0 Biosyn after cleaning abdomen of clots and debris. The muscle was reapproximated at the midline. The fascia was repaired with 0 Vicryl in running, locking fashion. Subsequently fascia was closed with 0 Vicryl. The subcutaneous was closed with 3-0 Vicryl and skin was closed with 4-0 Biosyn. Sponge and instrument count was correct x2. Patient tolerated procedure well and was brought to the recovery room in a stable condition. Sponge and instrument count was correct x2. Lucio [id number] MTDD
[2017-11-22] MEDS: CEFAZOLIN 1 GM/D5W 1 GM/50 ML BAG IVPB SCH (01:57)
[2017-11-22] MEDS: DEXTROSE 5%-LACTATED RINGERS 1,000 ML IV SCH (04:10)
[2017-11-22] MEDS: FENTANYL/BUPIVACAINE/NS/PF - PCEA - 50 ML DISP.SYRIN EP SCH (04:15)
[2017-11-22] MEDS: IBUPROFEN 800 MG/8 ML IJ IVPB PRN (05:52)
[2017-11-22] MEDS ORDERED: BISACODYL 10 MG SUPP.RECT RC PRN (07:55)
[2017-11-22 09:29] LABS: BASO % 0.4 % (0-2.0); EOS % 0.1 % (0-4.5); HEMATOCRIT 34.2 % (32.4-45.2); HEMOGLOBIN 11.7 GM/dL (10.7-15.3); LYMPH % 17.3 % (8-40); MCH 32.3 pg (25.7-33.7); MCHC 34.3 g/dl (32.0-36.0); MEAN CELL VOLUME 94.3 fl (80-96); MONO % 12.1 % (3.8-10.2); NEUT % 70.1 % (42.8-82.8); PLATELET COUNT 198 K/MM3 (134-434); RBC 3.63 M/mm3 (3.60-5.2); RDW 12.9 % (11.6-15.6); WHITE BLOOD COUNT 12.8 K/mm3 (4.0-10.0)
[2017-11-22] MEDS ORDERED: DIPHTH,PERTUSS(ACELL),TET 0.5 ML DISP.SYRIN IM ONE (10:00)
--- NOTE | 2017-11-22 12:46 | PN ---
Post Progress Note - Subjective Subjective: 22yo P2 s/p Repeat c/section No complains Post Day: 1 Type of Delivery: Repeat C/S Vital Signs: Vital Signs Temperature 98.0 F 11/22/17 07:40 Pulse Rate 72 11/22/17 07:40 Respiratory Rate 20 11/22/17 09:00 Blood Pressure 106/70 11/22/17 07:40 O2 Sat by Pulse Oximetry (%) 99 11/21/17 10:45 Breast Exam: Yes: Soft Uterus: Yes: Fundus Firm Incision: Yes: Dressing dry and intact Abdomen/GI: Yes: Abdomen soft Lochia: Yes: Rubra Lochia, amount: Small Extremities: Yes: Calves non-tender Perineum: Yes: Intact - Labs Labs: CBC WBC 12.8 K/mm3 (4.0-10.0) H 11/22/17 07:45 RBC 3.63 M/mm3 (3.60-5.2) 11/22/17 07:45 Hgb 11.7 GM/dL (10.7-15.3) D 11/22/17 07:45 Hct 34.2 % (32.4-45.2) D 11/22/17 07:45 MCV 94.3 fl (80-96) 11/22/17 07:45 MCH 32.3 pg (25.7-33.7) 11/22/17 07:45 MCHC 34.3 g/dl (32.0-36.0) 11/22/17 07:45 RDW 12.9 % (11.6-15.6) 11/22/17 07:45 Plt Count 198 K/MM3 (134-434) 11/22/17 07:45 MPV 9.0 fl (7.5-11.1) 11/22/17 07:45 Neutrophils % 70.1 % (42.8-82.8) 11/22/17 07:45 Lymphocytes % 17.3 % (8-40) D 11/22/17 07:45 Monocytes % 12.1 % (3.8-10.2) H D 11/22/17 07:45 Eosinophils % 0.1 % (0-4.5) 11/22/17 07:45 Basophils % 0.4 % (0-2.0) 11/22/17 07:45 Assessment/Plan 22yo P 2 s/p Repeat c/section VSS, Afebrile Doing well Voiding, ambulating Tolerating regular diet Baby for circumcision in the NICU doing well currently Rh pos no need for RhoGam
--- NOTE | 2017-11-22 15:57 | PN ---
Progress Note (short form) - Note Progress Note: Post op day#1.S/P C section under spinal anesthesia with duramorph uneventful.Patient stable and has little pain for which she is on medication.No any anesthesia related problem.Patient Dc from the anesthesia care.
[2017-11-22] MEDS: oxyCODONE HCL 5 MG TABLET PO PRN ×2 (16:38→20:40)
[2017-11-22] MEDS: SIMETHICONE 80 MG TAB.CHEW (FP) PO PRN ×2 (16:42→20:40)
[2017-11-22] MEDS: IBUPROFEN 600 MG TABLET (FP) PO PRN (20:39)
[2017-11-23] MEDS: IBUPROFEN 600 MG TABLET (FP) PO PRN ×3 (03:28→21:41)
[2017-11-23] MEDS: SIMETHICONE 80 MG TAB.CHEW (FP) PO PRN ×3 (03:28→21:41)
[2017-11-23] MEDS: oxyCODONE HCL 5 MG TABLET PO PRN ×2 (03:29→21:48)
--- NOTE | 2017-11-23 17:20 | DS ---
Physical Exam-MANAGER STERILE PROCESSING Vital Signs: Vital Signs Temperature 98.2 F 11/23/17 13:00 Pulse Rate 75 11/23/17 13:00 Respiratory Rate 16 11/23/17 13:00 Blood Pressure 110/66 11/23/17 13:00 O2 Sat by Pulse Oximetry (%) 99 11/21/17 10:45 Constitutional: Yes: Well Nourished, No Distress, Calm Eyes: Yes: WNL, Conjunctiva Clear HENT: Yes: WNL, Atraumatic, Normocephalic Neck: Yes: WNL, Supple, Trachea Midline Cardiovascular: Yes: WNL, Regular Rate and Rhythm Respiratory: Yes: WNL, Regular, CTA Bilaterally Gastrointestinal: Yes: WNL, Normal Bowel Sounds, Soft ...Rectal Exam: Yes: Deferred Renal/: Yes: WNL External Genitalia: Yes: Normal Internal Exam Deferred: Yes ....Post : Yes: Uterus firm, Uterus non-tender, Slight lochia rubra Breast(s): Yes: WNL Musculoskeletal: Yes: WNL Extremities: Yes: WNL Edema: Yes Edema: LLE: Trace, RLE: Trace Integumentary: Yes: WNL Wound/Incision: Yes: Clean/Dry, Well Approximated, Sutures Intact, Steri Strips , Open to air Neurological: Yes: WNL, Alert, Oriented ...Motor Strength: WNL Psychiatric: Yes: WNL, Alert, Oriented Labs: CBC, BMP 11/22/17 07:45 11/20/17 00:00 Delivery - Delivery Section: Repeat, Low Flap Transverse Type of Anesthesia: Spinal Episiotomy/Laceration: None EBL (cc): 500 Delivery, Single - Stages of Labor Date of Delivery: 11/21/17 Time of Delivery: 08:42 Time Placenta Delivered: 08:43 Placenta: Yes: Expressed - Condition of Regulatory Auditor/Otr Van Cdl Truck Driver Present: Yes Name: Nani Matute Gender: Male Weight: 2.523 kg Position: OT Total Hours ROM (Hrs/Mins): 0Hrs/0Mins - 1 Minute Total Score: 9 5 Minutes Total Score: 9 - Feeding Plan Initial Plan: Elected not to breastfeed exclusively throughout hospitalization Benefits of Exclusively reinforced: Yes Discharge Summary Reason For Visit: LABOR ADMIT Spontaneous labor at 36w 3d, prior C/S Procedures: Principal: Repeat LT C/S Hospital Course: Normal recovery Condition: Good - Instructions Diet, Activity, Other Instructions: Physical activity Resume your normal everyday activity as tolerated no heavy lifting or exercise until seen by your surgeon. You may walk unlimited inga of and climb stairs. You may resume driving the car when you feel safe and comfortable behind the wheel. No sexual activity as instructed. Wound care If you have a bandage, leave it on, and keep dry for 48-72 hours. After that time discard the outer bandage. If they are tapes on the skin under the out of bandage leave them in place. They will peel off in the next 7 to 10 days. Do Not Peel them off. You may shower the day after surgery. If there are tapes present on the skin, you may shower over them. Diet There are no dietary restrictions. Eat healthy, high-fiber foods. Drink 6 to 8 glasses of liquid each day. This will assist in keeping your bowels are regular. Pain management You may take Tylenol or acetaminophen or Ibuprofen (for example, Motrin, Advil etc.) from my pain prescription medication is ordered should be taken as prescribed for moderate to severe pain. Call MD for any of the following: Severe pain not relieved by medication Fever of 101 or higher Excessive bleeding or drainage on dressing Inability to urinate Referrals: Hernan Harmon MD [Staff Physician] - Disposition: HOME - Home Medications Comprehensive Discharge Medication List: Ambulatory Orders Vitamins (Sjr) - 1 tab PO DAILY 08/30/17
[2017-11-23] MEDS ORDERED: SENNOSIDES/DOCUSATE COMBO (SENNA PLUS) TABLET (UD) PO PRN (22:00)
[2017-11-24] MEDS: IBUPROFEN 600 MG TABLET (FP) PO PRN ×5 (02:03→22:23)
[2017-11-24] MEDS: SIMETHICONE 80 MG TAB.CHEW (FP) PO PRN ×5 (02:03→22:23)
[2017-11-24] MEDS: oxyCODONE HCL 5 MG TABLET PO PRN (02:03)
--- NOTE | 2017-11-24 04:14 | PN ---
Post Progress Note - Subjective Subjective: Patient without acute complaints. Reports tolerating oral intake without nausea or vomiting. Ambulating without dizziness. Denies fevers or chills. Pain well controlled with oral pain medication. without difficulty. Passing flatus. Post Day: 3 Type of Delivery: Repeat C/S Vital Signs: Vital Signs Temperature 97.9 F 11/23/17 21:00 Pulse Rate 80 11/23/17 21:00 Respiratory Rate 20 11/23/17 21:00 Blood Pressure 121/58 11/23/17 21:00 O2 Sat by Pulse Oximetry (%) 99 11/21/17 10:45 Uterus: Yes: Fundus Firm, Fundus below umbilicus Incision: Yes: Sutures intact. No: Redness, Oozing Abdomen/GI: Yes: Abdomen soft, Tender (incisional), Passing flatus, Tolerating PO Lochia: Yes: Serosa Lochia, amount: Small Extremities: Yes: Calves non-tender. No: Calf tenderness, Edema Activity: Ambulating - Labs Labs: CBC WBC 12.8 K/mm3 (4.0-10.0) H 11/22/17 07:45 RBC 3.63 M/mm3 (3.60-5.2) 11/22/17 07:45 Hgb 11.7 GM/dL (10.7-15.3) D 11/22/17 07:45 Hct 34.2 % (32.4-45.2) D 11/22/17 07:45 MCV 94.3 fl (80-96) 11/22/17 07:45 MCH 32.3 pg (25.7-33.7) 11/22/17 07:45 MCHC 34.3 g/dl (32.0-36.0) 11/22/17 07:45 RDW 12.9 % (11.6-15.6) 11/22/17 07:45 Plt Count 198 K/MM3 (134-434) 11/22/17 07:45 MPV 9.0 fl (7.5-11.1) 11/22/17 07:45 Neutrophils % 70.1 % (42.8-82.8) 11/22/17 07:45 Lymphocytes % 17.3 % (8-40) D 11/22/17 07:45 Monocytes % 12.1 % (3.8-10.2) H D 11/22/17 07:45 Eosinophils % 0.1 % (0-4.5) 11/22/17 07:45 Basophils % 0.4 % (0-2.0) 11/22/17 07:45 Assessment/Plan 22 yo POD # 3 s/p repeat CD, afebrile, vital signs stable, doing well 1. Continue routine postoperative care. 2. Encourage ambulation and incentive spirometer use 3. Continue oral pain medication 4. Anticipate discharge home postoperative day #4
[2017-11-24 07:42] LABS: BASO % 0.1 % (0-2.0); EOS % 0.9 % (0-4.5); HEMATOCRIT 35.1 % (32.4-45.2); LYMPH % 29.3 % (8-40); MCH 32.5 pg (25.7-33.7); MCHC 34.2 g/dl (32.0-36.0); MEAN PLT VOLUME 8.7 fl (7.5-11.1); MONO % 11.5 % (3.8-10.2); NEUT % 58.2 % (42.8-82.8); PLATELET COUNT 200 K/MM3 (134-434); RBC 3.69 M/mm3 (3.60-5.2); RDW 13.1 % (11.6-15.6); WHITE BLOOD COUNT 10.1 K/mm3 (4.0-10.0)
[2017-11-24] MEDS: ACETAMINOPHEN 325 MG TABLET (FP) PO PRN ×4 (08:39→22:23)
[2017-11-25] MEDS: IBUPROFEN 600 MG TABLET (FP) PO PRN ×2 (02:45→07:22)
[2017-11-25] MEDS: SIMETHICONE 80 MG TAB.CHEW (FP) PO PRN ×2 (02:45→07:22)
[2017-11-25] MEDS: ACETAMINOPHEN 325 MG TABLET (FP) PO PRN ×2 (02:47→07:23)
--- NOTE | 2017-11-25 08:08 | PN ---
Progress Note (short form) - Note Progress Note: pod 3 doing well, no c/o , voids ok CBC, BMP 11/24/17 06:00 11/20/17 00:00 Last Vital Signs Temp Pulse Resp BP Pulse Ox 98.3 F 79 20 113/71 99 11/24/17 21:00 11/24/17 21:00 11/24/17 21:00 11/24/17 21:00 11/21/17 10:45 abdomen soft, no distension, no cva incision dry, clean no calf tenderness plan d/c home, follow up office 1 week
[2017-11-25 09:57] VITALS: BP 122/62; PULSE 63; TEMP 97.6
== END 2017-11-25 12:25 | disposition home or self-care (01) | DRG 765 ==
LOC: JDEL 14:40 → JLDR 21:25 → J3W 11-21 12:18
PROVIDERS: ADMIT Obstetrics & Gynecology; ATTEND Obstetrics & Gynecology
PROC: 10D00Z1 Extraction of Products of Conception, Low, Open Approach (ICD-10-PCS; principal; 2017-11-21)
DX: O34.211 Maternal care for low transverse scar from previous cesarean delivery (principal); O60.23X1 Term delivery with preterm labor, third trimester, fetus 1; O23.43 Unspecified infection of urinary tract in pregnancy, third trimester; O36.0930 Maternal care for other rhesus isoimmunization, third trimester, not applicable or unspecified; O34.13 Maternal care for benign tumor of corpus uteri, third trimester; D25.9 Leiomyoma of uterus, unspecified; Z3A.36 36 weeks gestation of pregnancy; Z37.0 Single live birth
CPT/HCPCS: 36415; 36600; 80048; 81003; 82803; 85025; 85610; 85730; 86593; 86850; 86900; 86901; 87086; 87389; 88304-TC; 88307-TC; 90715; 96372

== ENCOUNTER 2019-04-01 13:12 | Emergency (ER) | payer OTHER ==
[2019-04-01 13:34] VITALS: BP 124/73; PULSE 83; TEMP 98.7; BMI 24.5
[2019-04-01] MEDS ORDERED: hydrOXYzine HCL 50 MG TABLET PO ONE (14:01)
[2019-04-01] MEDS ORDERED: DEXAMETHASONE 4 MG TABLET (FP) PO ONE (14:01)
--- NOTE | 2019-04-01 14:02 | PDOC ---
History of Present Illness - General Chief Complaint: Vaginal Sxs Stated Complaint: IRRITATION Time Seen by Provider: 04/01/19 13:56 - History of Present Illness Initial Comments: 04/01/19 14:01 CHIEF COMPLAINT: itching HISTORY OF PRESENT ILLNESS: 24 yo F with no significant PMH presents to [facility] with "bed bug bites" and vaginal itching. Patient reports she knows she got bed bug bites "the other day" but now she has the same itching to her vagina. She wasn't sure if bed bugs " could bite down there" and immediately assumed she had an STD and came here. She denies any vaginal discharge, dysuria , foul-smelling urine, or urinary frequency, but does state that "my period is late too." She has not used any topical or oral medications for her symptoms. No recent travel or sick contacts. PAST MEDICAL HISTORY: Denies past medical history FAMILY HISTORY: Denies SOCIAL HISTORY: Denies tobacco, alcohol, illicit drug use. SURGICAL HISTORY: Denies ALLERGIES: No known drug allergies REVIEW OF SYSTEMS General/Constitutional: Denies fever or chills. Denies weakness, weight change. HEENT: Denies change in vision. Denies ear pain or discharge. Denies sore throat. Cardiovascular: Denies chest pain or shortness of breath. Respiratory: Denies cough, wheezing, or hemoptysis. Gastrointestinal: Denies nausea, vomiting, diarrhea or constipation. Denies rectal bleeding. Genitourinary: Vaginal itching since yesterday. Denies dysuria, frequency, or change in urination. Musculoskeletal: Denies joint or muscle swelling or pain. Denies neck or back pain. Skin: "I have bed bug bites all over that are really itchy." Neurologic: Denies headache, vertigo, loss of consciousness, or loss of sensation. PHYSICAL EXAM General Appearance: Well-appearing, appropriately dressed. No apparent distress , no intoxication. HEENT: EOMI, PERRLA, normal ENT inspection, normal voice, TMs normal, pharynx normal. No conjunctival pallor. No photophobia, scleral icterus. Neck: Supple. Trachea midline. No tenderness, rigidity, carotid bruit, stridor , lymphadenopathy, or thyromegaly. Respiratory/Chest: Lungs CTAB. No shortness of breath, chest tenderness, respiratory distress, accessory muscle use. No crackles, rales, rhonchi, stridor , wheezing, dullness Cardiovascular: RRR. S1, S2. No JVD, murmur, bradycardia, tachycardia. Vascular Pulses: Dorsalis-Pedis (R): 2+, Dorsalis-Pedis (L): 2+ Gastrointestinal/Abdominal: Normal bowel sounds. Abdomen soft, non-distended. No tenderness or rebound tenderness. No organomegaly, pulsatile mass, guarding , hernia, hepatomegaly, splenomegaly. Lymphatic: No adenopathy, tenderness. Musculoskeletal/Extremities: Normal inspection. FROM of all extremities, normal capillary refill. Pelvis Stable. No CVA tenderness. No tenderness to extremities, pedal edema, swelling, erythema or deformity. Integumentary: Scattered erythematous, pruritic lesions to entire body. Appropriate color, dry, warm. 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 Fully oriented, alert. Appropriate mood/affect. Motor strength 5/5. No appreciable EOM palsy, facial droop or sensory deficit. 04/01/19 14:02 Past History - Past Medical History Allergies/Adverse Reactions: Allergies Allergy/AdvReac Type Severity Reaction Status Date / Time No Known Allergies Allergy Verified 04/01/19 13:34 Home Medications: Ambulatory Orders Vitamins (Sjr) - 1 tab PO DAILY 08/30/17 Oxycodone HCl/Acetaminophen [Percocet 5-325 mg Tablet -] 1 - 2 tab PO Q6H PRN # 20 tab MDD 8 11/23/17 Triamcinolone 0.1% Cream [Aristocort 0.1% Cream -] 1 applic TP TID #1 tube 04/01 Asthma: Yes Cancer: No Cardiac Disorders: No Diabetes: No HTN: No Kidney Stones: Yes Seizures: No Thyroid Disease: No - Surgical History Abdominal Surgery: Yes (kidney stone removed) - Reproductive History (#): 6 Para: 1 Ectopic : No Therapeutic (s) & number: Yes (1) Spontaneous : 2 - Immunization History Immunization Up to Date: Yes - Suicide/Smoking/Psychosocial Hx Smoking Status: No Smoking History: Never smoked Have you smoked in the past 12 months: Yes Number of Cigarettes Smoked Daily: 0 If you are a former smoker, when did you quit?: 3weeks Information on smoking cessation initiated: No Hx Alcohol Use: No Drug/Substance Use Hx: No Substance Use Type: None Hx Substance Use Treatment: No *Physical Exam - Vital Signs Last Vital Signs Temp Pulse Resp BP Pulse Ox 98.7 F 83 16 124/73 100 04/01/19 13:20 04/01/19 13:20 04/01/19 13:20 04/01/19 13:20 04/01/19 13:20 Medical Decision Making - Medical Decision Making 04/01/19 14:05 24 yo F with no significant PMH presents to [facility] with "bed bug bites" and vaginal itching. -decadron -atarax 04/01/19 14:57 Pt upreg positive. Patient states she probably will not keep the baby. ADvised patient to f/u with OB/PP. 04/01/19 14:58 *DC/Admit/Observation/Transfer Diagnosis at time of Disposition: Bed bug bite, - Discharge Dispostion Disposition: HOME Condition at time of disposition: Stable Decision to Admit order: No - Prescriptions Prescriptions: Triamcinolone 0.1% Cream [Aristocort 0.1% Cream -] 1 applic TP TID #1 tube - Referrals Referrals: [facility] [Outside] Dick Brown MD [Staff Physician] - - Patient Instructions Printed Discharge Instructions: DI for Bed Bug Bites, Medications and - Post Discharge Activity
[2019-04-01] MEDS ORDERED: DEXAMETHASONE SOD PHOSPHATE 10 MG/1 ML VIAL ONE (14:04)
[2019-04-01] MEDS ORDERED: hydrOXYzine HCL 25 MG TABLET (FP) PO ONE (14:05)
[2019-04-01 14:44] LABS: URINE APPEARANCE Clear; URINE BILIRUBIN 1+ (NEGATIVE); URINE COLOR Yellow; URINE GLUCOSE (UA) Negative (NEGATIVE); URINE KETONE 4+ (NEGATIVE); URINE LEUK ESTERASE Negative (NEGATIVE); URINE NITRITE Negative (NEGATIVE); URINE PROTEIN 1+ (NEGATIVE); URINE UROBILINOGEN 0.2 mg/dL (0.2-1.0)
== END 2019-04-01 15:01 | disposition home or self-care (01) ==
LOC: JERFT 13:12
DX: O26.899 Other specified pregnancy related conditions, unspecified trimester (principal); Z3A.00 Weeks of gestation of pregnancy not specified; S30.860A Insect bite (nonvenomous) of lower back and pelvis, initial encounter; S80.862A Insect bite (nonvenomous), left lower leg, initial encounter; S80.861A Insect bite (nonvenomous), right lower leg, initial encounter; S40.862A Insect bite (nonvenomous) of left upper arm, initial encounter; S40.861A Insect bite (nonvenomous) of right upper arm, initial encounter; W57.XXXA Bitten or stung by nonvenomous insect and other nonvenomous arthropods, initial encounter; Y93.9 Activity, unspecified; Y92.003 Bedroom of unspecified non-institutional (private) residence as the place of occurrence of the external cause
CPT/HCPCS: 36415; 81003; 84703; 87077; 87086; 87491; 87591; 99281-25

== ENCOUNTER 2021-04-27 16:40 | Inpatient (IN) | payer OTHER ==
[2021-04-27] MEDS ORDERED: ELECTROLYTE-148 SOLN 500 ML IV ONE (17:09)
[2021-04-27] MEDS ORDERED: AMPICILLIN NA/SULBACTAM NA 1.5 GM in SODIUM CHLORIDE 100 ML IVPB ONE (17:15)
[2021-04-27] MEDS ORDERED: ELECTROLYTE-148 SOLN 1,000 ML IV SCH (17:38)
[2021-04-27 17:55] LABS: BASO % 0.3 % (0-2.0); EOS % 1.4 % (0-4.5); LYMPH % 31.9 % (8-40); MCH 31.6 pg (25.7-33.7); MEAN CELL VOLUME 90.4 fl (80-96); MEAN PLT VOLUME 9.1 fl (7.5-11.1); MONO % 14.1 % (3.8-10.2); NEUT % 52.3 % (42.8-82.8); PLATELET COUNT 166 10^3/uL (134-434); RBC 4.09 M/mm3 (3.60-5.2); RDW 14.3 % (11.6-15.6); WHITE BLOOD COUNT 6.9 K/mm3 (4.0-10.0)
[2021-04-27 18:15] LABS: CALCIUM 9.1 mg/dL (8.5-10.1)
[2021-04-27 18:16] LABS: BLOOD UREA NITROGEN 6.2 mg/dL (7-18)
[2021-04-27 18:19] LABS: CREATININE 0.5 mg/dL (0.55-1.3)
[2021-04-27 19:10] LABS: URINE APPEARANCE CLEAR; URINE BILIRUBIN NEGATIVE (NEGATIVE); URINE COLOR YELLOW; URINE GLUCOSE (UA) NEGATIVE (NEGATIVE); URINE KETONE NEGATIVE (NEGATIVE); URINE LEUK ESTERASE NEGATIVE (NEGATIVE); URINE NITRITE NEGATIVE (NEGATIVE); URINE PROTEIN NEGATIVE (NEGATIVE); URINE UROBILINOGEN 0.2 mg/dL (0.2-1.0)
[2021-04-27] MEDS: ELECTROLYTE-148 SOLN 1,000 ML IV SCH (22:00)
[2021-04-27] MEDS: ACETAMINOPHEN 1000 MG/100 ML VIAL (NON FORMULARY) IVPB PRN (22:45)
[2021-04-27] MEDS ORDERED: ACETAMINOPHEN INJECTION 100 ML IVPB ONE (22:47)
[2021-04-27 23:49] VITALS: BMI 28.0
[2021-04-28] MEDS: ELECTROLYTE-148 SOLN 1,000 ML IV SCH (06:30)
[2021-04-28] MEDS ORDERED: ACETAMINOPHEN INJECTION 100 ML IVPB ONE (09:13)
[2021-04-28] MEDS: ACETAMINOPHEN 1000 MG/100 ML VIAL (NON FORMULARY) IVPB PRN ×2 (09:15→20:45)
[2021-04-28] MEDS ORDERED: diphenhydrAMINE HCL 25 MG CAPSULE (FP) PO PRN (10:30)
[2021-04-28] MEDS ORDERED: SIMETHICONE 80 MG TAB.CHEW (FP) PO PRN (10:30)
[2021-04-28] MEDS ORDERED: ACETAMINOPHEN 325 MG TABLET (FP) PO PRN (10:30)
[2021-04-28] MEDS ORDERED: IBUPROFEN 600 MG TABLET (FP) PO PRN (10:30)
[2021-04-28] MEDS ORDERED: BENZOCAINE 28 GM HEMORRHOIDAL OINTMENT TP PRN (10:30)
[2021-04-28] MEDS ORDERED: WITCH HAZEL 50% (TUCKS) 40 PAD/JAR PAD TP PRN (10:30)
[2021-04-28] MEDS ORDERED: METHYLERGONOVINE MALEATE 0.2 MG/1 ML AMP IM PRN (10:30)
[2021-04-28] MEDS ORDERED: BENZOCAINE 20% 57 GM BOTTLE TP PRN (10:30)
[2021-04-28] MEDS ORDERED: IBUPROFEN 800 MG/8 ML IJ IVPB PRN (10:30)
[2021-04-28] MEDS ORDERED: CITRIC ACID/SODIUM CITRATE 30 ML UNIT-DOSE CUP PO ONE (15:00)
[2021-04-28] MEDS ORDERED: OXYTOCIN 20 UNITS in 0.9% NS 20 UNIT/1,000 ML INFUS.BAG IV ONE (15:58)
[2021-04-28] MEDS ORDERED: morphine SULFATE/PF 1 MG/2 ML (2cc Syringe - QUVA) ONE (15:59)
[2021-04-28] MEDS ORDERED: ePHEDrine SULFATE 50 MG/1 ML AMPULE ONE (16:00)
[2021-04-28] MEDS ORDERED: SODIUM CHLORIDE 0.9% P/F 10 ML VIAL IJ ONE ×2 (16:07→16:51)
[2021-04-28] MEDS ORDERED: ceFAZolin SODIUM 1 GM VIAL ONE (16:37)
[2021-04-28] MEDS ORDERED: ONDANSETRON 4 MG/2 ML VIAL IVPUSH PRN (16:46)
[2021-04-28] MEDS ORDERED: ONDANSETRON 4 MG/2 ML VIAL ONE ×2 (16:51→17:55)
[2021-04-28] MEDS ORDERED: KETOROLAC TROMETHAMINE 30 MG/1 ML VIAL ONE (16:51)
[2021-04-28 18:28] LABS: CORD BASE EXCESS -3.5 mmol/L (0-2); CORD HCO3 20.7 mmHg (20-29); CORD PCO2 34.5 mmHg (30-78); CORD pH 7.396 (7.14-7.44)
[2021-04-28 18:29] LABS: CORD BASE EXCESS -2.1 mmol/L (0-2); CORD HCO3 22.4 mmHg (20-29); CORD PCO2 37.5 mmHg (30-78); CORD pH 7.394 (7.14-7.44)
[2021-04-28] MEDS ORDERED: OXYTOCIN 20 UNITS in 0.9% NS 20 UNIT/1,000 ML INFUS.BAG IV SCH (21:15)
[2021-04-29] MEDS ORDERED: BISACODYL 10 MG SUPP.RECT PR PRN (10:30)
[2021-04-29] MEDS ORDERED: oxyCODONE HCL 5 MG TABLET PO PRN ×2 (10:30)
[2021-04-29 10:51] LABS: HEMATOCRIT 32.4 % (32.4-45.2); HEMOGLOBIN 11.3 GM/dL (10.7-15.3); MEAN CELL VOLUME 91.6 fl (80-96); MEAN PLT VOLUME 9.8 fl (7.5-11.1); PLATELET COUNT 160 10^3/uL (134-434); RBC 3.54 M/mm3 (3.60-5.2); RDW 14.5 % (11.6-15.6); WHITE BLOOD COUNT 7.1 K/mm3 (4.0-10.0)
[2021-04-29] MEDS: IBUPROFEN 600 MG TABLET (FP) PO PRN ×3 (13:02→23:55)
[2021-04-29] MEDS: diphenhydrAMINE HCL 25 MG CAPSULE (FP) PO PRN (20:18)
[2021-04-30] MEDS: diphenhydrAMINE HCL 25 MG CAPSULE (FP) PO PRN (04:18)
[2021-04-30] MEDS ORDERED: oxyCODONE HCL 5 MG TABLET PO PRN (06:08)
[2021-04-30] MEDS: IBUPROFEN 600 MG TABLET (FP) PO PRN ×3 (07:35→23:18)
[2021-04-30] MEDS: oxyCODONE HCL 5 MG TABLET PO PRN (13:51)
[2021-04-30] MEDS ORDERED: SENNOSIDES/DOCUSATE COMBO (SENNA PLUS) TABLET (UD) PO PRN (22:00)
[2021-05-01] MEDS: oxyCODONE HCL 5 MG TABLET PO PRN (03:21)
[2021-05-01] MEDS: IBUPROFEN 600 MG TABLET (FP) PO PRN (06:56)
[2021-05-01 11:04] VITALS: BP 119/77; PULSE 83; TEMP 98
== END 2021-05-01 14:33 | disposition home or self-care (01) | DRG 540 ==
LOC: JDEL 16:40 → JLDR 21:40 → J3W 04-28 19:56
PROVIDERS: ADMIT Obstetrics & Gynecology; ATTEND Obstetrics & Gynecology
PROC: 10D00Z1 Extraction of Products of Conception, Low, Open Approach (ICD-10-PCS; principal; 2021-04-28)
DX: O60.23X0 Term delivery with preterm labor, third trimester, not applicable or unspecified (principal); O34.211 Maternal care for low transverse scar from previous cesarean delivery; Z3A.36 36 weeks gestation of pregnancy; Z37.0 Single live birth; R10.30 Lower abdominal pain, unspecified
CPT/HCPCS: 36415; 36600; 76775-TC; 76819-TC; 80048; 81003; 82803; 85025; 85027; 86850; 86900; 86901; 87086; 88307-TC; C9803; J0131; U0003; U0005

== ENCOUNTER 2022-07-26 17:20 | Emergency (ER) | payer OTHER ==
[2022-07-26 17:52] VITALS: BP 124/81; PULSE 74; RESP 18; TEMP 98.4; BMI 29.2
[2022-07-26] MEDS ORDERED: SODIUM CHLORIDE 1,000 ML IV STA (18:05)
[2022-07-26] MEDS ORDERED: ACETAMINOPHEN 1000 MG/100 ML BAG IVPB ONE (18:05)
[2022-07-26] MEDS ORDERED: ONDANSETRON 4 MG/2 ML VIAL IVPUSH ONE ×2 (18:05→20:37)
[2022-07-26] MEDS ORDERED: ACETAMINOPHEN INJECTION 100 ML IVPB ONE (18:38)
[2022-07-26] MEDS ORDERED: ONDANSETRON 4 MG/2 ML VIAL ONE ×2 (18:38→21:12)
[2022-07-26 19:12] LABS: BASO % 0.3 % (0-2.0); EOS % 1.2 % (0-4.5); HEMATOCRIT 39.8 % (32.4-45.2); HEMOGLOBIN 13.7 GM/dL (10.7-15.3); LYMPH % 32.6 % (8-40); MCHC 34.4 g/dl (32.0-36.0); MEAN CELL VOLUME 87.2 fl (80-96); MONO % 11.1 % (3.8-10.2); NEUT % 54.8 % (42.8-82.8); PLATELET COUNT 268 10^3/uL (134-434); RBC 4.57 M/mm3 (3.60-5.2); RDW 15.4 % (11.6-15.6); WHITE BLOOD COUNT 9.2 K/mm3 (4.0-10.0)
[2022-07-26 19:14] LABS: PH,URINE 6.5 (5.0-8.0); URINE APPEARANCE CLEAR; URINE BILIRUBIN NEGATIVE (NEGATIVE); URINE COLOR YELLOW; URINE GLUCOSE (UA) NEGATIVE (NEGATIVE); URINE KETONE 2+ (NEGATIVE); URINE LEUK ESTERASE NEGATIVE (NEGATIVE); URINE NITRITE NEGATIVE (NEGATIVE); URINE PROTEIN NEGATIVE (NEGATIVE); URINE UROBILINOGEN 0.2 mg/dL (0.2-1.0)
[2022-07-26 19:31] LABS: ALBUMIN 3.9 g/dl (3.4-5.0); CALCIUM 9.5 mg/dL (8.5-10.1)
[2022-07-26 19:32] LABS: BLOOD UREA NITROGEN 7.1 mg/dL (7-18)
[2022-07-26 19:34] LABS: CREATININE 0.5 mg/dL (0.55-1.3)
[2022-07-26 19:36] LABS: BILIRUBIN,TOTAL 0.6 mg/dL (0.2-1); TOT PROT 7.8 g/dl (6.4-8.2)
== END 2022-07-26 21:37 | disposition home or self-care (01) ==
LOC: JER 17:20
PROC: 3E033GC Introduction of Other Therapeutic Substance into Peripheral Vein, Percutaneous Approach (ICD-10-PCS; principal; 2022-07-26)
DX: O21.9 Vomiting of pregnancy, unspecified (principal); Z3A.01 Less than 8 weeks gestation of pregnancy
CPT/HCPCS: 0241U-QW; 36415; 76705-TC; 76817-TC; 80053; 81003; 83690; 84702; 84703; 85025; 87086; 99284-25

== ENCOUNTER 2022-08-03 09:28 | Emergency (ER) | payer OTHER ==
[2022-08-03 09:36] VITALS: BP 130/82; PULSE 95; RESP 18; TEMP 98.5; BMI 27.8
[2022-08-03] MEDS ORDERED: METOCLOPRAMIDE HCL INJECTION 10 MG/2 ML VIAL IVPUSH ONE (10:38)
[2022-08-03] MEDS ORDERED: ACETAMINOPHEN 1000 MG/100 ML BAG IVPB ONE (10:38)
[2022-08-03] MEDS ORDERED: SODIUM CHLORIDE 0.9% 500 ML INFUS.BAG IV ONE (10:38)
[2022-08-03] MEDS ORDERED: MAGNESIUM SULF 50% (8.12 MEQ/2 ML-1 GM VIAL) IVPB ONE (10:39)
[2022-08-03] MEDS ORDERED: MAGNESIUM SULF 50% (8.12 MEQ/2 ML-1 GM VIAL) ONE (11:15)
[2022-08-03] MEDS ORDERED: ACETAMINOPHEN INJECTION 100 ML IVPB ONE (11:15)
[2022-08-03] MEDS ORDERED: METOCLOPRAMIDE HCL INJECTION 10 MG/2 ML VIAL ONE (11:15)
[2022-08-03 11:57] LABS: BASO % 0.4 % (0-2.0); EOS % 1.1 % (0-4.5); HEMATOCRIT 40.4 % (32.4-45.2); HEMOGLOBIN 13.5 GM/dL (10.7-15.3); LYMPH % 29.9 % (8-40); MCH 29.6 pg (25.7-33.7); MCHC 33.5 g/dl (32.0-36.0); MEAN CELL VOLUME 88.4 fl (80-96); MEAN PLT VOLUME 8.9 fl (7.5-11.1); MONO % 13.1 % (3.8-10.2); NEUT % 55.5 % (42.8-82.8); PLATELET COUNT 259 10^3/uL (134-434); RBC 4.57 M/mm3 (3.60-5.2); RDW 15.6 % (11.6-15.6); WHITE BLOOD COUNT 7.4 K/mm3 (4.0-10.0)
[2022-08-03 12:00] LABS: PH,URINE 7.5 (5.0-8.0); URINE APPEARANCE CLEAR; URINE BILIRUBIN NEGATIVE (NEGATIVE); URINE COLOR YELLOW; URINE GLUCOSE (UA) NEGATIVE (NEGATIVE); URINE KETONE NEGATIVE (NEGATIVE); URINE LEUK ESTERASE NEGATIVE (NEGATIVE); URINE NITRITE NEGATIVE (NEGATIVE); URINE PROTEIN NEGATIVE (NEGATIVE); URINE UROBILINOGEN 0.2 mg/dL (0.2-1.0)
[2022-08-03 12:30] LABS: CALCIUM 9.9 mg/dL (8.5-10.1)
[2022-08-03 12:31] LABS: ALBUMIN 3.7 g/dl (3.4-5.0); BLOOD UREA NITROGEN 7.2 mg/dL (7-18)
[2022-08-03 12:34] LABS: CREATININE 0.5 mg/dL (0.55-1.3)
[2022-08-03 12:35] LABS: TOT PROT 7.7 g/dl (6.4-8.2)
[2022-08-03 12:44] LABS: BILIRUBIN,TOTAL 0.7 mg/dL (0.2-1)
== END 2022-08-03 14:06 | disposition home or self-care (01) ==
LOC: JER 09:28
PROC: 3E0333Z Introduction of Anti-inflammatory into Peripheral Vein, Percutaneous Approach (ICD-10-PCS; principal; 2022-08-03)
PROC: 3E033GC Introduction of Other Therapeutic Substance into Peripheral Vein, Percutaneous Approach (ICD-10-PCS; 2022-08-03)
PROC: 3E033GC Introduction of Other Therapeutic Substance into Peripheral Vein, Percutaneous Approach (ICD-10-PCS; 2022-08-03)
DX: O20.9 Hemorrhage in early pregnancy, unspecified (principal); Z3A.08 8 weeks gestation of pregnancy
CPT/HCPCS: 36415; 76801-TC; 80053; 81003; 84702; 84703; 85025; 86850; 86900; 86901; 87086; 99284-25

== ENCOUNTER 2024-05-14 18:05 | Observation (INO) | payer OTHER ==
[2024-05-14 20:16] LABS: BASO % 0.4 % (0-2.0); EOS % 1.1 % (0-4.5); HEMATOCRIT 36.7 % (32.4-45.2); MCH 25.7 pg (25.7-33.7); MCHC 32.8 g/dl (32.0-36.0); MEAN CELL VOLUME 78.4 fl (80-96); MEAN PLT VOLUME 8.4 fl (7.5-11.1); MONO % 11.6 % (3.8-10.2); NEUT % 60.9 % (42.8-82.8); PLATELET COUNT 333 10^3/uL (134-434); RBC 4.68 M/mm3 (3.60-5.2); RDW 16.6 % (11.6-15.6); URINE APPEARANCE CLEAR; URINE BILIRUBIN NEGATIVE (NEGATIVE); URINE COLOR YELLOW; URINE GLUCOSE (UA) NEGATIVE (NEGATIVE); URINE KETONE 2+ (NEGATIVE); URINE LEUK ESTERASE NEGATIVE (NEGATIVE); URINE NITRITE NEGATIVE (NEGATIVE); URINE PROTEIN NEGATIVE (NEGATIVE); URINE UROBILINOGEN 0.2 mg/dL (0.2-1.0); WHITE BLOOD COUNT 8.8 K/mm3 (4.0-10.0)
[2024-05-14] MEDS ORDERED: ONDANSETRON 4 MG/2 ML VIAL ONE ×2 (20:17→21:49)
[2024-05-14] MEDS ORDERED: FAMOTIDINE 20 MG/50 ML IVPB 20 MG/50 ML MG IVPB ONE (20:17)
[2024-05-14] MEDS: ONDANSETRON 4 MG/2 ML VIAL IVPUSH ONE ×2 (20:23→22:06)
[2024-05-14] MEDS: FAMOTIDINE 20 MG/50 ML IVPB 20 MG/50 ML MG IVPB ONE (20:23)
[2024-05-14] MEDS: SODIUM CHLORIDE 0.9% 500 ML INFUS.BAG IV ONE (20:23)
[2024-05-14 20:37] LABS: POTASSIUM 4.1 mmol/L (3.5-5.1)
[2024-05-14 20:40] LABS: CALCIUM 9.9 mg/dL (8.5-10.1)
[2024-05-14 20:41] LABS: ALBUMIN 3.8 g/dl (3.4-5.0); BLOOD UREA NITROGEN 5.6 mg/dL (7-18)
[2024-05-14 20:43] LABS: CREATININE 0.5 mg/dL (0.55-1.3)
[2024-05-14 20:45] LABS: BILIRUBIN,TOTAL 0.5 mg/dL (0.2-1); TOT PROT 8.1 g/dl (6.4-8.2)
[2024-05-14] MEDS ORDERED: ACETAMINOPHEN INJECTION 100 ML ONE (21:49)
[2024-05-14] MEDS: ACETAMINOPHEN 1000 MG/100 ML BAG IVPB ONE (22:05)
[2024-05-14] MEDS ORDERED: morphine SULFATE 4 MG/ML VIAL ONE (23:46)
[2024-05-14] MEDS ORDERED: METOCLOPRAMIDE HCL INJECTION 10 MG/2 ML VIAL ONE (23:46)
[2024-05-15] MEDS: morphine CARPU-JECT 4 MG/1 ML DISP.SYRIN IVPUSH ONE (00:02)
[2024-05-15] MEDS: METOCLOPRAMIDE HCL INJECTION 10 MG/2 ML VIAL IVPUSH ONE (00:03)
[2024-05-15] MEDS: DEXTROSE 5%-NORMAL SALINE 1,000 ML IV SCH (01:20)
[2024-05-15] MEDS ORDERED: ACETAMINOPHEN 500 MG TABLET (FP) PO PRN (04:29)
[2024-05-15] MEDS ORDERED: MORPHINE SULFATE 2 MG/ML SYRINGE ONE (06:23)
[2024-05-15] MEDS: MORPHINE SULFATE 2 MG/ML SYRINGE IVPUSH PRN (06:29)
[2024-05-15 07:37] VITALS: BMI 30.4
[2024-05-15] MEDS ORDERED: MAGNESIUM HYDROX 2400MG/30ML ORAL SUSPENSION 30 ML CUP PO PRN (07:52)
[2024-05-15] MEDS: ONDANSETRON 4 MG/2 ML VIAL IVPUSH PRN (12:11)
[2024-05-15] MEDS: POLYETHYLENE GLYCOL (HEALTHYLAX) 3350 17 GM PACKET PO SCH (12:12)
[2024-05-15] MEDS: ONDANSETRON 4 MG/2 ML VIAL IVPUSH SCH (21:15)
[2024-05-15] MEDS: ACETAMINOPHEN 1000 MG/100 ML BAG IVPB SCH (21:15)
[2024-05-16] MEDS: ONDANSETRON 4 MG/2 ML VIAL IVPUSH ONE (07:09)
[2024-05-16 08:14] LABS: INR 1.03 (0.83-1.09); PROTHROMBIN TIME (PATIENT) 11.8 SEC (9.7-13.0)
[2024-05-16 08:15] LABS: ACTIVATED PTT 30.7 SECONDS (25.2-36.5)
[2024-05-16 08:19] LABS: BASO % 0.2 % (0-2.0); EOS % 1.9 % (0-4.5); HEMATOCRIT 31.6 % (32.4-45.2); HEMOGLOBIN 10.4 GM/dL (10.7-15.3); LYMPH % 37.7 % (8-40); MCH 26.5 pg (25.7-33.7); MEAN CELL VOLUME 80.4 fl (80-96); MEAN PLT VOLUME 8.7 fl (7.5-11.1); MONO % 13.7 % (3.8-10.2); NEUT % 46.5 % (42.8-82.8); PLATELET COUNT 257 10^3/uL (134-434); RBC 3.93 M/mm3 (3.60-5.2); RDW 16.3 % (11.6-15.6); WHITE BLOOD COUNT 5.4 K/mm3 (4.0-10.0)
[2024-05-16 08:34] LABS: POTASSIUM 4.2 mmol/L (3.5-5.1)
[2024-05-16 08:40] LABS: CALCIUM 8.8 mg/dL (8.5-10.1)
[2024-05-16 08:41] LABS: CREATININE 0.5 mg/dL (0.55-1.3); MAGNESIUM 1.9 mg/dL (1.8-2.4); PHOSPHOROUS 2.7 mg/dL (2.5-4.9)
[2024-05-16] MEDS: ONDANSETRON 4 MG/2 ML VIAL IVPB SCH (15:27)
[2024-05-16] MEDS: POLYETHYLENE GLYCOL (HEALTHYLAX) 3350 17 GM PACKET PO SCH (15:28)
[2024-05-16] MEDS: PROMETHAZINE HCL 25 MG SUPPOSITORY RC PRN (17:50)
[2024-05-17] MEDS: BISACODYL 10 MG SUPP.RECT PR ONE (09:16)
[2024-05-17 10:46] LABS: HEMATOCRIT 31.9 % (32.4-45.2); HEMOGLOBIN 10.5 GM/dL (10.7-15.3); MCHC 32.9 g/dl (32.0-36.0); MEAN CELL VOLUME 79.2 fl (80-96); MEAN PLT VOLUME 8.8 fl (7.5-11.1); PLATELET COUNT 262 10^3/uL (134-434); RBC 4.03 M/mm3 (3.60-5.2); WHITE BLOOD COUNT 5.7 K/mm3 (4.0-10.0)
[2024-05-17 11:07] LABS: POTASSIUM 4.3 mmol/L (3.5-5.1)
[2024-05-17 11:14] LABS: BLOOD UREA NITROGEN 3.4 mg/dL (7-18)
[2024-05-17 11:17] LABS: CREATININE 0.5 mg/dL (0.55-1.3)
[2024-05-17] MEDS: POLYETHYLENE GLYCOL (HEALTHYLAX) 3350 17 GM PACKET PO SCH (11:30)
[2024-05-17] MEDS: ONDANSETRON 4 MG TABLET PO PRN (13:49)
[2024-05-17 15:29] VITALS: PULSE 76; TEMP 98.6
[2024-05-17 17:10] VITALS: BP 120/86; RESP 20
== END 2024-05-17 17:59 | disposition home or self-care (01) ==
LOC: JER 18:05 → JERBED 05-15 00:05 → J8W 05-15 06:33
PROVIDERS: ADMIT Internal Medicine; ATTEND Family Medicine
PROC: 3E033GC Introduction of Other Therapeutic Substance into Peripheral Vein, Percutaneous Approach (ICD-10-PCS; principal; 2024-05-15)
PROC: 3E0337Z Introduction of Electrolytic and Water Balance Substance into Peripheral Vein, Percutaneous Approach (ICD-10-PCS; 2024-05-15)
PROC: 3E033NZ Introduction of Analgesics, Hypnotics, Sedatives into Peripheral Vein, Percutaneous Approach (ICD-10-PCS; 2024-05-15)
DX: O34.11 Maternal care for benign tumor of corpus uteri, first trimester (principal); Z3A.08 8 weeks gestation of pregnancy; R10.31 Right lower quadrant pain; R11.2 Nausea with vomiting, unspecified; R10.9 Unspecified abdominal pain
CPT/HCPCS: 36415; 72195-TC; 74181-TC; 76705-TC; 76801-TC; 80048; 80053; 81003; 83735; 84100; 84702; 85025; 85027; 85610; 85730; 87077; 87086; 96361; 96365; 96375; 96376; 99285-25; G0378; J0131

== ENCOUNTER 2024-06-04 08:04 | Emergency (ER) | payer OTHER ==
[2024-06-04 09:29] VITALS: BMI 29.4
[2024-06-04] MEDS ORDERED: ONDANSETRON *ODT* 4 MG TABLET ONE (09:38)
[2024-06-04] MEDS: ONDANSETRON *ODT* 4 MG TABLET SL ONE (09:43)
[2024-06-04 10:41] VITALS: BP 133/63; PULSE 75; RESP 17
== END 2024-06-04 11:18 | disposition home or self-care (01) ==
LOC: JER 08:04
DX: O99.340 Other mental disorders complicating pregnancy, unspecified trimester (principal); F41.0 Panic disorder [episodic paroxysmal anxiety]; Z3A.00 Weeks of gestation of pregnancy not specified
CPT/HCPCS: 93005; 93010; 99283-25; Q0162

== ENCOUNTER 2024-06-08 11:40 | Emergency (ER) | payer OTHER ==
[2024-06-08 11:49] VITALS: RESP 18; BMI 29.4
[2024-06-08] MEDS ORDERED: ONDANSETRON 4 MG/2 ML VIAL ONE (12:42)
[2024-06-08] MEDS ORDERED: FAMOTIDINE 20 MG/50 ML IVPB 20 MG/50 ML MG IVPB ONE (12:42)
[2024-06-08] MEDS ORDERED: METOCLOPRAMIDE HCL INJECTION 10 MG/2 ML VIAL ONE (12:42)
[2024-06-08 12:48] LABS: BASO % 0.7 % (0-2.0); EOS % 1.9 % (0-4.5); HEMATOCRIT 33.6 % (32.4-45.2); HEMOGLOBIN 11.5 GM/dL (10.7-15.3); LYMPH % 34.5 % (8-40); MCHC 34.3 g/dl (32.0-36.0); MEAN CELL VOLUME 78.8 fl (80-96); MEAN PLT VOLUME 8.1 fl (7.5-11.1); MONO % 15.1 % (3.8-10.2); NEUT % 47.8 % (42.8-82.8); PLATELET COUNT 322 10^3/uL (134-434); RBC 4.27 M/mm3 (3.60-5.2); RDW 18.3 % (11.6-15.6); WHITE BLOOD COUNT 6.1 K/mm3 (4.0-10.0)
[2024-06-08] MEDS: METOCLOPRAMIDE HCL INJECTION 10 MG/2 ML VIAL IVPUSH ONE (12:55)
[2024-06-08] MEDS: ONDANSETRON 4 MG/2 ML VIAL IVPB ONE (12:56)
[2024-06-08] MEDS: SODIUM CHLORIDE 1,000 ML IV STA (12:56)
[2024-06-08] MEDS: FAMOTIDINE 20 MG/50 ML IVPB 20 MG/50 ML MG IVPB ONE (12:56)
[2024-06-08 13:17] LABS: POTASSIUM 3.7 mmol/L (3.5-5.1)
[2024-06-08 13:18] LABS: BLOOD UREA NITROGEN 3.8 mg/dL (7-18); CALCIUM 9.4 mg/dL (8.5-10.1)
[2024-06-08 13:19] LABS: ALBUMIN 3.5 g/dl (3.4-5.0); MAGNESIUM 1.7 mg/dL (1.8-2.4)
[2024-06-08 13:22] LABS: CREATININE 0.5 mg/dL (0.55-1.3)
[2024-06-08 13:24] LABS: BILIRUBIN,TOTAL 0.6 mg/dL (0.2-1); TOT PROT 7.4 g/dl (6.4-8.2)
[2024-06-08] MEDS ORDERED: ACETAMINOPHEN 325 MG TABLET (FP) ONE (13:46)
[2024-06-08] MEDS: ACETAMINOPHEN 325 MG TABLET (FP) PO ONE (13:53)
[2024-06-08] MEDS ORDERED: MAGNESIUM 1GM/D5W - 1 GM/100 ML IVPB IVPB ONE (14:18)
[2024-06-08] MEDS: MAGNESIUM SULF 50% (8.12 MEQ/2 ML-1 GM VIAL) IVPB ONE (14:28)
[2024-06-08 15:36] VITALS: BP 114/73; PULSE 73; TEMP 98.1
== END 2024-06-08 15:36 | disposition home or self-care (01) ==
LOC: JER 11:40
PROC: 3E033GC Introduction of Other Therapeutic Substance into Peripheral Vein, Percutaneous Approach (ICD-10-PCS; principal; 2024-06-08)
PROC: 3E033GC Introduction of Other Therapeutic Substance into Peripheral Vein, Percutaneous Approach (ICD-10-PCS; 2024-06-08)
PROC: 3E033GC Introduction of Other Therapeutic Substance into Peripheral Vein, Percutaneous Approach (ICD-10-PCS; 2024-06-08)
PROC: 3E033GC Introduction of Other Therapeutic Substance into Peripheral Vein, Percutaneous Approach (ICD-10-PCS; 2024-06-08)
DX: O99.355 Diseases of the nervous system complicating the puerperium (principal); G43.909 Migraine, unspecified, not intractable, without status migrainosus; O21.9 Vomiting of pregnancy, unspecified; O13.1 Gestational [pregnancy-induced] hypertension without significant proteinuria, first trimester; Z3A.12 12 weeks gestation of pregnancy
CPT/HCPCS: 36415; 76815; 80053; 83735; 84702; 85025; 93005; 93010; 99284-25

== ENCOUNTER 2024-11-17 13:12 | Inpatient (IN) | payer OTHER ==
[2024-11-17] MEDS: DEXTROSE 5%-LACTATED RINGERS 1,000 ML IV SCH (13:15)
[2024-11-17] MEDS: ACETAMINOPHEN 1000 MG/100 ML BAG IVPB ONE (14:25)
[2024-11-17] MEDS ORDERED: ACETAMINOPHEN INJECTION 100 ML ONE ×2 (14:25→22:59)
[2024-11-17] MEDS ORDERED: FENTANYL/BUPIVACAINE/NS/PF - PCEA - 50 ML DISP.SYRIN EP ONE (16:15)
[2024-11-17] MEDS ORDERED: morphine SULFATE 4 MG/ML VIAL ONE (19:04)
[2024-11-17] MEDS: morphine SULFATE 4 MG/ML VIAL IVPUSH ONE (19:12)
[2024-11-17 19:35] LABS: PH,URINE 6.5 (5.0-8.0); URINE APPEARANCE CLEAR; URINE BILIRUBIN NEGATIVE (NEGATIVE); URINE COLOR YELLOW; URINE GLUCOSE (UA) NEGATIVE (NEGATIVE); URINE KETONE 2+ (NEGATIVE); URINE LEUK ESTERASE NEGATIVE (NEGATIVE); URINE NITRITE NEGATIVE (NEGATIVE); URINE PROTEIN NEGATIVE (NEGATIVE); URINE UROBILINOGEN 0.2 mg/dL (0.2-1.0)
[2024-11-17] MEDS ORDERED: ELECTROLYTE-148 SOLN 1,000 ML IV SCH (20:30)
[2024-11-17] MEDS ORDERED: MAGNESIUM SULFATE IVPB SCH (20:45)
[2024-11-17 21:00] LABS: ABSOLUTE IMMATURE GRANULOCYTES 0.02 x10^3/uL (0.0-0.031); BASOPHILS # 0.01 x10^3/uL (0.01-0.08); EOSINOPHIL % 0.3 % (0.7-5.8); EOSINOPHILS # 0.02 x10^3/uL (0.04-0.36); HEMATOCRIT 36.9 % (34.1-44.9); HEMOGLOBIN 12.2 g/dL (11.2-15.7); MCHC 33.1 g/dl (32.2-35.5); MEAN PLT VOLUME 10.8 fl (9.4-12.3); MONOCYTE # 0.76 x10^3/uL (0.24-0.86); MONOCYTE % 12.3 % (4.7-12.5); PLATELET COUNT 208 x10^3/uL (182-369); RDW 16.3 % (12.1-16.8)
[2024-11-17 21:10] LABS: ACTIVATED PTT 26.4 SECONDS (25.2-36.5)
[2024-11-17] MEDS ORDERED: MAGNESIUM 4GM/H20 - 4 GM/100 ML IVPB IVPB ONE (21:24)
[2024-11-17 21:27] LABS: POTASSIUM 3.9 mmol/L (3.5-5.1)
[2024-11-17 21:29] LABS: CALCIUM 9.4 mg/dL (8.5-10.1)
[2024-11-17] MEDS ORDERED: AMPICILLIN SODIUM 2 GM VIAL ONE (21:30)
[2024-11-17 21:33] LABS: CREATININE 0.5 mg/dL (0.55-1.3)
[2024-11-17] MEDS: ELECTROLYTE-148 SOLN 1,000 ML IV SCH (21:35)
[2024-11-17] MEDS: MAGNESIUM 4GM/H20 - 4 GM/100 ML IVPB IVPB ONE (21:37)
[2024-11-17] MEDS: AMPICILLIN - 2 GM in SODIUM CHLORIDE 100 ML IVPB ONE (21:40)
[2024-11-17] MEDS ORDERED: MAGNESIUM SULFATE 20GM/500ML - 500 ML IVPB SCH (21:45)
[2024-11-17 21:57] LABS: SYPHILIS W/ RPR CONF NON-REACTIVE (NONREACTIVE)
[2024-11-17] MEDS ORDERED: MAGNESIUM SULFATE 20GM/500ML - 20 GM/500 ML INFUS.BAG ONE (22:09)
[2024-11-17] MEDS: MAGNESIUM SULFATE 20GM/500ML - 20 GM/500 ML INFUS.BAG IVPB SCH (22:14)
[2024-11-17 22:25] LABS: HIV INTERPRETATION NEGATIVE (NEGATIVE)
[2024-11-17 22:41] VITALS: BMI 31.8
[2024-11-17] MEDS: ACETAMINOPHEN 1000 MG/100 ML BAG IVPB PRN (23:02)
[2024-11-18] MEDS ORDERED: AMPICILLIN SODIUM 1 GM VIAL ONE ×6 (01:11→21:25)
[2024-11-18] MEDS: AMPICILLIN - 1 GM in SODIUM CHLORIDE 100 ML IVPB SCH (01:18)
[2024-11-18] MEDS ORDERED: FAMOTIDINE 20 MG/50 ML IVPB 20 MG/50 ML MG IVPB ONE (03:08)
[2024-11-18] MEDS: FAMOTIDINE 20 MG/50 ML IVPB 20 MG/50 ML MG IVPB ONE (03:12)
[2024-11-18] MEDS ORDERED: ACETAMINOPHEN INJECTION 100 ML ONE ×4 (05:07→23:53)
[2024-11-18] MEDS ORDERED: MAGNESIUM SULFATE 20GM/500ML - 20 GM/500 ML INFUS.BAG ONE (16:46)
[2024-11-19] MEDS: ACETAMINOPHEN 1000 MG/100 ML BAG IVPB PRN (00:02)
[2024-11-19] MEDS: CITRIC ACID/SODIUM CITRATE 30 ML UNIT-DOSE CUP PO ONE (05:30)
[2024-11-19] MEDS ORDERED: METHYLERGONOVINE MALEATE 0.2 MG/1 ML AMP IM PRN (06:22)
[2024-11-19] MEDS ORDERED: morphine SULFATE/PF 1 MG/2 ML (2cc Syringe - QUVA) ONE (06:23)
[2024-11-19] MEDS ORDERED: LIGASURE IMPACT TP ONE (06:32)
[2024-11-19] MEDS ORDERED: ONDANSETRON 4 MG/2 ML VIAL ONE ×2 (07:55)
[2024-11-19] MEDS: ONDANSETRON 4 MG/2 ML VIAL IVPUSH PRN (08:00)
[2024-11-19] MEDS: FERROUS SO4 325 MG TABLET (FP) PO SCH (08:03)
[2024-11-19 08:34] LABS: CORD HCO3 25.6 mmHg (20-29); CORD PCO2 49.5 mmHg (30-78); CORD pH 7.331 (7.14-7.44)
[2024-11-19 08:36] LABS: CORD BASE EXCESS -4.2 mmol/L (0-2); CORD HCO3 24.1 mmHg (20-29); CORD pH 7.236 (7.14-7.44)
[2024-11-19] MEDS ORDERED: OXYTOCIN 20 UNITS in 0.9% NS 20 UNIT/1,000 ML INFUS.BAG IV ONE (09:12)
[2024-11-19] MEDS: OXYTOCIN 20 UNITS in 0.9% NS 20 UNIT/1,000 ML INFUS.BAG IV SCH (09:15)
[2024-11-19] MEDS ORDERED: ceFAZolin SODIUM 1 GM VIAL ONE (09:53)
[2024-11-19] MEDS: CEFAZOLIN 1 GM/D5W 1 GM/50 ML BAG IVPB SCH (10:08)
[2024-11-19] MEDS: PRENATAL VITAMINS W/ FOLIC ACID TABLET (FP) PO SCH (16:59)
[2024-11-19] MEDS: CEFAZOLIN 1 GM in DEXTROSE 5%-WATER - 50 ML IVPB SCH (18:23)
[2024-11-19] MEDS: IBUPROFEN 800 MG/8 ML IJ IVPB PRN (21:04)
[2024-11-20] MEDS: oxyCODONE HCL 5 MG TABLET PO PRN (03:46)
[2024-11-20] MEDS ORDERED: BISACODYL 10 MG SUPP.RECT RC PRN (06:22)
[2024-11-20 07:46] LABS: ABSOLUTE IMMATURE GRANULOCYTES 0.03 x10^3/uL (0.0-0.031); BASOPHILS # 0.02 x10^3/uL (0.01-0.08); EOSINOPHIL % 0.2 % (0.7-5.8); EOSINOPHILS # 0.02 x10^3/uL (0.04-0.36); HEMATOCRIT 31.1 % (34.1-44.9); MCHC 32.2 g/dl (32.2-35.5); MEAN CELL VOLUME 87.4 fl (79.4-94.8); MEAN PLT VOLUME 11.7 fl (9.4-12.3); MONOCYTE # 1.14 x10^3/uL (0.24-0.86); MONOCYTE % 10.8 % (4.7-12.5); PLATELET COUNT 197 x10^3/uL (182-369); RDW 16.3 % (12.1-16.8)
[2024-11-20] MEDS: IBUPROFEN 600 MG TABLET (FP) PO PRN (08:13)
[2024-11-20] MEDS: SIMETHICONE 80 MG TAB.CHEW (FP) PO PRN (08:13)
[2024-11-20] MEDS: ACETAMINOPHEN 325 MG TABLET (FP) PO PRN (11:57)
[2024-11-20] MEDS: DOCUSATE SODIUM 100 MG CAPSULE (FP) PO PRN (20:21)
[2024-11-21 23:22] VITALS: RESP 18
[2024-11-22] MEDS: oxyCODONE HCL 5 MG TABLET PO PRN (04:00)
[2024-11-22 08:02] LABS: ABSOLUTE IMMATURE GRANULOCYTES 0.03 x10^3/uL (0.0-0.031); BASOPHILS # 0.01 x10^3/uL (0.01-0.08); EOSINOPHIL % 1.1 % (0.7-5.8); EOSINOPHILS # 0.09 x10^3/uL (0.04-0.36); HEMATOCRIT 31.6 % (34.1-44.9); MCHC 31.6 g/dl (32.2-35.5); MEAN CELL VOLUME 89.3 fl (79.4-94.8); MEAN PLT VOLUME 10.8 fl (9.4-12.3); MONOCYTE # 0.85 x10^3/uL (0.24-0.86); MONOCYTE % 10.3 % (4.7-12.5); PLATELET COUNT 230 x10^3/uL (182-369); RDW 16.7 % (12.1-16.8)
[2024-11-22 09:23] VITALS: BP 129/77; PULSE 75; TEMP 98.1
== END 2024-11-22 17:00 | disposition home or self-care (01) | DRG 540 ==
LOC: JDEL 13:12 → J3WN 20:25 → JLDR 20:46 → OBSVTOIN 11-19 05:07 → INTOOBSV 11-19 05:07 → J3W 11-19 10:20
PROVIDERS: ADMIT Obstetrics & Gynecology; ATTEND Obstetrics & Gynecology
PROC: 10D00Z1 Extraction of Products of Conception, Low, Open Approach (ICD-10-PCS; principal; 2024-11-19)
PROC: 0UB90ZZ Excision of Uterus, Open Approach (ICD-10-PCS; 2024-11-19)
DX: O60.14X0 Preterm labor third trimester with preterm delivery third trimester, not applicable or unspecified (principal); O99.02 Anemia complicating childbirth; O34.13 Maternal care for benign tumor of corpus uteri, third trimester; D25.2 Subserosal leiomyoma of uterus; Z3A.35 35 weeks gestation of pregnancy; O34.211 Maternal care for low transverse scar from previous cesarean delivery; N85.8 Other specified noninflammatory disorders of uterus; Z37.0 Single live birth
CPT/HCPCS: 36415; 36600; 59025; 59409; 80048; 81003; 82803; 83735; 85025; 85610; 85730; 86780; 86850; 86900; 86901; 87086; 87389; 88305-TC; 88307-TC; 94010; G0378; J0131

== ENCOUNTER 2025-02-16 12:41 | Inpatient (IN) | payer OTHER ==
[2025-02-16 12:52] VITALS: BMI 32.1
[2025-02-16] MEDS ORDERED: KETOROLAC TROMETHAMINE 30 MG/1 ML VIAL ONE (14:54)
[2025-02-16] MEDS ORDERED: ACETAMINOPHEN INJECTION 100 ML ONE (14:55)
[2025-02-16] MEDS: KETOROLAC TROMETHAMINE 30 MG/1 ML VIAL IM ONE (15:13)
[2025-02-16] MEDS: ACETAMINOPHEN 1000 MG/100 ML BAG IVPB ONE (15:13)
[2025-02-16] MEDS: SODIUM CHLORIDE 0.9% 500 ML INFUS.BAG IV ONE (15:13)
[2025-02-16 15:14] LABS: ABSOLUTE IMMATURE GRANULOCYTES 0.01 x10^3/uL (0.0-0.031); BASOPHILS # 0.01 x10^3/uL (0.01-0.08); EOSINOPHIL % 1.4 % (0.7-5.8); EOSINOPHILS # 0.13 x10^3/uL (0.04-0.36); MCHC 31.2 g/dl (32.2-35.5); MEAN CELL VOLUME 86.3 fl (79.4-94.8); MEAN PLT VOLUME 10.2 fl (9.4-12.3); MONOCYTE # 0.89 x10^3/uL (0.24-0.86); MONOCYTE % 9.9 % (4.7-12.5); RDW 14.4 % (12.1-16.8)
[2025-02-16 15:22] LABS: INR 1.05 (0.83-1.09); PROTHROMBIN TIME (PATIENT) 11.5 SEC (9.7-13.0)
[2025-02-16 15:25] LABS: ACTIVATED PTT 32.7 SECONDS (25.2-36.5)
[2025-02-16 15:52] LABS: ALK PHOS 78.0 U/L (45-117); CO2 27.0 mmol/L (21-32); CREATININE 0.5 mg/dL (0.55-1.3); GLUCOSE,RANDOM 101.0 mg/dL (74-106); SGOT/AST 12.0 U/L (15-37); SGPT/ALT 22.0 U/L (13-61); TOT PROT 6.9 g/dl (6.4-8.2)
[2025-02-16] MEDS: morphine CARPU-JECT 4 MG/1 ML DISP.SYRIN IVPUSH ONE (17:52)
[2025-02-16] MEDS: morphine CARPU-JECT 2 MG/1 ML DISP.SYRIN IM ONE (18:33)
[2025-02-16 18:39] LABS: HIV INTERPRETATION NEGATIVE (NEGATIVE)
[2025-02-16 21:30] LABS: HCV DIAGNOSTIC IN-HOUSE W/RFLX NON-REACTIVE (NONREACTIVE)
[2025-02-16] MEDS ORDERED: MORPHINE SULFATE 2 MG/ML SYRINGE ONE (22:51)
[2025-02-16] MEDS: morphine CARPU-JECT 2 MG/1 ML DISP.SYRIN IVPUSH ONE (22:56)
[2025-02-17 01:01] LABS: MCHC 31.5 g/dl (32.2-35.5); MEAN CELL VOLUME 85.9 fl (79.4-94.8); MEAN PLT VOLUME 9.6 fl (9.4-12.3); RDW 14.4 % (12.1-16.8)
[2025-02-17] MEDS ORDERED: IBUPROFEN 800 MG/8 ML IJ IVPB ONE (01:12)
[2025-02-17 01:13] LABS: EPI CELLS 15 /uL (0-25.1); HYALINE CASTS 1 /uL (0-3.1); URINE APPEARANCE CLEAR; URINE BACTERIA 154 /uL (0-1359); URINE BILIRUBIN NEGATIVE (NEGATIVE); URINE COLOR YELLOW; URINE GLUCOSE (UA) NEGATIVE (NEGATIVE); URINE KETONE NEGATIVE (NEGATIVE); URINE LEUK ESTERASE 1+ (NEGATIVE); URINE NITRITE NEGATIVE (NEGATIVE); URINE PROTEIN NEGATIVE (NEGATIVE); URINE RBC 74 /uL (0-23.9); URINE UROBILINOGEN 1.0 mg/dL (0.2-1.0); URINE WBC 29 /uL (0-25.8)
[2025-02-17 01:14] LABS: HCG,QUALITATIVE URINE Negative
[2025-02-17] MEDS: ELECTROLYTE-148 SOLN 1,000 ML IV SCH (01:24)
[2025-02-17] MEDS: IBUPROFEN 800 MG/8 ML IJ IVPB SCH (01:24)
[2025-02-17] MEDS: ACETAMINOPHEN 325 MG TABLET (FP) PO PRN (19:11)
[2025-02-18] MEDS ORDERED: MIDAZOLAM HCL 2 MG/2 ML SINGLE DOSE VIAL ONE ×2 (11:51→12:13)
[2025-02-18] MEDS ORDERED: ONDANSETRON 4 MG/2 ML VIAL ONE (11:54)
[2025-02-18] MEDS ORDERED: TRANEXAMIC ACID 1000 MG/10 ML VIAL ONE (12:08)
[2025-02-18] MEDS ORDERED: DEXAMETHASONE SOD PHOSPHATE 4 MG/1 ML VIAL ONE (12:08)
[2025-02-18] MEDS: ceFAZolin 2 GRAM PREMIX BAG IVPB ONE ×2 (12:18)
[2025-02-18] MEDS ORDERED: PROPOFOL 20 ML ONE ×3 (12:28→13:34)
[2025-02-18] MEDS ORDERED: ONDANSETRON 4 MG/2 ML VIAL IVPUSH PRN ×3 (14:08→14:39)
[2025-02-18] MEDS ORDERED: NALOXONE HCL 0.4 MG/ML VIAL IVPUSH PRN ×2 (14:08→14:39)
[2025-02-18] MEDS ORDERED: ACETAMINOPHEN INJECTION 100 ML ONE (14:13)
[2025-02-18] MEDS: ACETAMINOPHEN 1000 MG/100 ML BAG IVPB ONE (14:15)
[2025-02-18] MEDS ORDERED: morphine CARPU-JECT 4 MG/1 ML DISP.SYRIN IVPUSH PRN (14:39)
[2025-02-18] MEDS: morphine SULFATE/PF 1 MG/2 ML (2cc Syringe - QUVA) IT ONE ×2 (15:24→16:01)
[2025-02-18] MEDS: ACETAMINOPHEN 500 MG TABLET (FP) PO SCH ×2 (15:24→20:21)
[2025-02-18 15:57] LABS: MCHC 32.8 g/dl (32.2-35.5); MEAN CELL VOLUME 85.1 fl (79.4-94.8); MEAN PLT VOLUME 9.7 fl (9.4-12.3); RDW 14.1 % (12.1-16.8)
[2025-02-18] MEDS: ELECTROLYTE-148 SOLN 1,000 ML IV SCH (16:00)
[2025-02-18] MEDS: LACTATED RINGERS SOLUTION 1,000 ML IV SCH ×2 (16:02→16:57)
[2025-02-18 16:55] LABS: CO2 26.0 mmol/L (21-32); GLUCOSE,RANDOM 95.0 mg/dL (74-106)
[2025-02-18 16:59] LABS: CREATININE 0.6 mg/dL (0.55-1.3)
[2025-02-18] MEDS ORDERED: CEFAZOLIN SODIUM 2 GM in DEXTROSE 5%-WATER - 50 ML IVPB SCH (18:00)
[2025-02-18] MEDS ORDERED: CEFAZOLIN 2 GM in DEXTROSE 5%-WATER - 50 ML IVPB SCH (18:00)
[2025-02-18] MEDS: CEFAZOLIN 2 GM/D5W 2 GM/50 ML ML IVPB SCH (18:02)
[2025-02-18] MEDS: ONDANSETRON 4 MG/2 ML VIAL IVPUSH PRN (18:52)
[2025-02-18] MEDS: IBUPROFEN 800 MG/8 ML IJ IVPB SCH (22:43)
[2025-02-19 09:15] LABS: MCHC 31.6 g/dl (32.2-35.5); MEAN CELL VOLUME 84.8 fl (79.4-94.8); MEAN PLT VOLUME 10.5 fl (9.4-12.3); RDW 14.2 % (12.1-16.8)
[2025-02-19 09:32] LABS: CO2 24.0 mmol/L (21-32); GLUCOSE,RANDOM 77.0 mg/dL (74-106)
[2025-02-19 09:35] LABS: CREATININE 0.9 mg/dL (0.55-1.3)
[2025-02-19] MEDS: PANTOPRAZOLE 40 MG TABLET PO SCH (09:37)
[2025-02-19] MEDS: ACETAMINOPHEN 1000 MG/100 ML BAG IVPB SCH (09:37)
[2025-02-19] MEDS ORDERED: ONDANSETRON 4 MG TABLET PO PRN (11:03)
[2025-02-19] MEDS: LACTATED RINGERS SOLUTION 1,000 ML/1,000 ML INFUS.BAG IV SCH (11:19)
[2025-02-19] MEDS: ONDANSETRON *ODT* 4 MG TABLET SL PRN (11:19)
[2025-02-19] MEDS: SERTRALINE HCL 25 MG TABLET (FP) PO SCH (12:54)
[2025-02-19] MEDS: DOCUSATE SODIUM 100 MG CAPSULE (FP) PO SCH (12:54)
[2025-02-19] MEDS: POLYETHYLENE GLYCOL (HEALTHYLAX) 3350 17 GM PACKET PO SCH (12:55)
[2025-02-19] MEDS: KETOROLAC TROMETHAMINE 15 MG/ML VIAL IVPUSH SCH (14:18)
[2025-02-19] MEDS: AMINO ACIDS/PROTEIN HYDROLYS 30 ML LIQUID.PKT PO SCH (17:34)
[2025-02-19 22:30] VITALS: TEMP 98.4
[2025-02-20 08:44] LABS: MCHC 31.6 g/dl (32.2-35.5); MEAN CELL VOLUME 85.2 fl (79.4-94.8); MEAN PLT VOLUME 10.3 fl (9.4-12.3); RDW 14.6 % (12.1-16.8)
[2025-02-20 09:18] LABS: CO2 26.0 mmol/L (21-32)
[2025-02-20 09:19] LABS: GLUCOSE,RANDOM 76.0 mg/dL (74-106)
[2025-02-20 09:22] LABS: CREATININE 0.9 mg/dL (0.55-1.3)
[2025-02-20] MEDS: IRON SUCROSE INJECTION 200 MG in SODIUM CHLORIDE 100 ML IVPB ONE (11:27)
[2025-02-20 12:26] LABS: IRON SERUM 17.0 ug/dL (50-175)
[2025-02-20] MEDS: MEPERIDINE HCL 25 MG/ML VIAL SQ PRN (20:40)
[2025-02-21] MEDS: SIMETHICONE 80 MG TAB.CHEW (FP) PO PRN (02:15)
[2025-02-21] MEDS: FERROUS GLUCONATE 324 MG TAB (FP) PO SCH (10:09)
[2025-02-21] MEDS: ONDANSETRON 4 MG/2 ML VIAL IVPB ONE (10:10)
[2025-02-21 11:55] VITALS: BP 131/79; PULSE 59; RESP 17
[2025-02-21] MEDS: ACETAMINOPHEN 500 MG TABLET (FP) PO SCH (16:51)
[2025-02-21] MEDS: IBUPROFEN 600 MG TABLET (FP) PO SCH (16:51)
== END 2025-02-21 17:25 | disposition home or self-care (01) | DRG 951 ==
LOC: JER 12:41 → JERBED 23:58 → J8W 02-17 04:46
PROVIDERS: ADMIT Obstetrics & Gynecology; ATTEND Obstetrics & Gynecology
PROC: 0UT90ZZ Resection of Uterus, Open Approach (ICD-10-PCS; 2025-02-18)
PROC: 0W3R0ZZ Control Bleeding in Genitourinary Tract, Open Approach (ICD-10-PCS; 2025-02-18)
PROC: 0UB20ZZ Excision of Bilateral Ovaries, Open Approach (ICD-10-PCS; 2025-02-18)
PROC: 0UT70ZZ Resection of Bilateral Fallopian Tubes, Open Approach (ICD-10-PCS; principal; 2025-02-18 10:30)
DX: D21.9 Benign neoplasm of connective and other soft tissue, unspecified (principal); L76.32 Postprocedural hematoma of skin and subcutaneous tissue following other procedure; N93.9 Abnormal uterine and vaginal bleeding, unspecified; F41.8 Other specified anxiety disorders; N80.03 Adenomyosis of the uterus; Y83.9 Surgical procedure, unspecified as the cause of abnormal reaction of the patient, or of later complication, without mention of misadventure at the time of the procedure; I10 Essential (primary) hypertension
CPT/HCPCS: 36415; 76830-TC; 80048; 80053; 81003; 83540; 83550; 83605; 83690; 83735; 84703; 85025; 85027; 85610; 85730; 86803; 86850; 86900; 86901; 87086; 87389; 88305-TC; 93005; 93010; 94010; 94760; 97116-GP; 97161-GP; 99285-25; J1756; Q0162